=== PATIENT | female | born 1965 | race Caucasian/White ===

== ENCOUNTER 2020-10-31 10:27 | Outpatient (REF) | payer BC, SELFPAY ==
--- NOTE | ~2020-10-31 | MM_ITS ---
EXAMINATION: MM SCREENING DIGITAL BREAST TOMOSYNTHESIS, BILATERAL CLINICAL INFORMATION: Screening. Asymptomatic. The lifetime risk of breast cancer based on the Tyrer-Cuzick Model is 7.2%. COMPARISON: Mammography: October 26, 2019 and studies dating back to May 23, 2010 TECHNIQUE: Digital breast tomosynthesis is performed in both the craniocaudal and mediolateral oblique views along with computer-aided detection (CAD). Synthesized 2D images are generated from the tomosynthesis. FINDINGS: The breasts are heterogeneously dense, which may obscure small masses (ACR BI-RADS breast composition Category c). There are no significant masses, abnormal calcifications, or other abnormalities. MM/MM tomosynthesis screening BI IMPRESSION: There are no significant changes from prior study. ASSESSMENT: BI-RADS 1: Negative RECOMMENDATION: Routine annual mammography screening. This patient's information was entered into a reminder system with a target due date for their next mammogram.
== END 2020-10-31 10:28 | disposition home or self-care (01) ==
LOC: HO.MAMMO 10:27
PROVIDERS: PCP Physician Assistant; Visit Provider Physician Assistant
DX: Z12.31 Encounter for screening mammogram for malignant neoplasm of breast (principal)
CPT/HCPCS: 77063; 77067

== ENCOUNTER 2021-10-12 08:46 | Outpatient (REF) | payer BC, SELFPAY ==
[2021-10-12 09:27] LABS: MANUAL DIFF FLAG NO
[2021-10-12 10:29] LABS: Basophils Absolute Auto 0.1 X10*3/uL (0.0-0.2); Basophils Percent Auto 0.7 % (0-2); Eosinophils Absolute Auto 0.3 X10*3/uL (0.0-0.4); Eosinophils Percent Auto 4.1 % (0-4); Hematocrit 39.2 % (37.0-47.0); Hemoglobin 12.8 g/dl (12.0-16.0); Imm Gran Abs Auto 0.06 X10*3/uL (0.00-0.03); Imm Gran Pct Auto 0.8 % (0.0-0.4); Lymphocytes Percent Auto 28.2 % (20-40); Mean Corpuscular HGB Conc 32.7 g/dl (31.0-35.0); Mean Corpuscular Hemoglobin 29.9 pg (27.0-33.0); Mean Corpuscular Volume 91.6 fL (80.0-98.0); Mean Platelet Volume 11.6 fL (9.4-12.3); Monocytes Absolute Auto 0.6 X10*3/uL (0.1-1.2); Monocytes Percent Auto 8.3 % (2-11); Neutrophils Absolute Auto 4.1 x10*3/uL (2.0-8.3); Neutrophils Percent Auto 57.9 % (45-73); Platelet Count 207 X10*3/uL (160-400); Red Blood Count 4.28 X10*6/uL (4.20-5.50); Red Cell Distribution Width 12.9 % (11.0-16.0); White Blood Count 7.1 X10*3/uL (4.8-10.8)
[2021-10-12 10:48] LABS: Alanine Aminotransferase 36 U/L (0-31); Albumin Level 4.2 g/dL (3.5-5.0); Alkaline Phosphatase 123 U/L (39-117); Anion Gap 13 (12-20); Aspartate Amino Transferase 30 U/L (5-31); Bilirubin Total 0.3 mg/dL (0.0-1.0); Blood Urea Nitrogen 12 mg/dL (9-16); Calcium 9.2 mg/dL (8.4-10.2); Carbon Dioxide 27 mmol/L (22-29); Chloride 105 mmol/L (96-108); Estimated Glomerular Filt Rate > 60; Glucose Random 89 mg/dL (60-115); Potassium 4.5 mmol/L (3.3-5.1); Sodium 140 mmol/L (135-145)
== END 2021-10-12 08:47 | disposition home or self-care (01) ==
LOC: HO.LAB 08:46
PROVIDERS: PCP Physician Assistant; Visit Provider Dermatology
DX: L20.84 Intrinsic (allergic) eczema (principal); Z79.899 Other long term (current) drug therapy
CPT/HCPCS: 36415; 80053; 85025

== ENCOUNTER 2022-11-10 15:33 | Outpatient (REF) | payer BC, SELFPAY ==
--- NOTE | ~2022-11-10 | MM_ITS ---
EXAMINATION: MM SCREENING DIGITAL BREAST TOMOSYNTHESIS, BILATERAL CLINICAL INFORMATION: Screening. Asymptomatic. The lifetime risk of breast cancer based on the Tyrer-Cuzick Model is 7%. COMPARISON: Mammography: 10/31/2020, 10/26/2019, 09/04/2018 TECHNIQUE: Digital breast tomosynthesis is performed in both the craniocaudal and mediolateral oblique views along with computer-aided detection (CAD). Synthesized 2D images are generated from the tomosynthesis. Additional left MLO view is provided. FINDINGS: The breasts are heterogeneously dense, which may obscure small masses (ACR BI-RADS breast composition Category c). There are no significant masses, abnormal calcifications, or other abnormalities. Parenchymal pattern is similar to prior studies. There is no developing density or architectural abnormality. The axilla and skin contours are unremarkable. No significant changes. MM/MM tomosynthesis screening BI IMPRESSION: No mammographic evidence of malignancy. ASSESSMENT: BI-RADS 1: Negative RECOMMENDATION: Routine annual mammography screening. This patient's information was entered into a reminder system with a target due date for their next mammogram.
== END 2022-11-10 15:34 | disposition home or self-care (01) ==
LOC: HO.MAMMO 15:33
PROVIDERS: PCP Physician Assistant; Visit Provider Physician Assistant
DX: Z12.31 Encounter for screening mammogram for malignant neoplasm of breast (principal)
CPT/HCPCS: 77063; 77067

== ENCOUNTER 2023-11-16 15:36 | Outpatient (REF) | payer BC, SELFPAY | END 2023-11-16 15:37 | disposition home or self-care (01) | LOC: HO.MAMMO 15:36 | PROVIDERS: Visit Provider Physician Assistant | DX: Z12.31 Encounter for screening mammogram for malignant neoplasm of breast (principal) | CPT/HCPCS: 77063; 77067 ==

== ENCOUNTER → 2023-11-16 16:00 | Outpatient (BNV) | payer BC, SELFPAY | PROVIDERS: Visit Provider Radiology Diagnostic Radiology | DX: Z12.31 Encounter for screening mammogram for malignant neoplasm of breast (principal) | CPT/HCPCS: 77063; 77067 ==

== ENCOUNTER 2024-03-22 09:46 | Outpatient (AMB) | payer BC, SELFPAY ==
--- NOTE | 2024-03-22 09:49 | A.OFFPC_ITS ---
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 Accompanied by: Self / Same As Patient Allergies peanut [PEANUTS] Allergy (Unknown, Verified 03/22/24 09:53) ANAPHYLAXIS Peanut (Diagnostic) Allergy (Unknown, Uncoded 02/27/21 14:08) Anaphylaxis Medication List - Last Reconciled 03/22/24 by Keron Millan MD dupilumab (Dupixent) 300 mg subcut Q2W fluocinonide 0.05% 1 appl topical BID losartan 25 mg PO DAILY omeprazole 20 mg PO DAILY Tobacco use date assessed: 03/22/24 Dental Screening Dental Screen Date: 03/22/24 Did you have a dental visit in the last 12 months?: Yes Did you have a dental problem in the last 6 months where you did not have access to dental care?: No Was dental information given to patient?: Patient has dentist 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 ?? Prior PCP:?Solomon Bains Last office visit/CPE:? Acute issue(s):? Palp R knee ?? PMHx:? HTN, Eczema, Heartburn, palpitations SurgHx:?, R hand fracture, Teeth removal FHx:? Mom: CAD, [place] age 70s and Bypass, HTN. Dad: Emphysema. Sister: Hashimotos. Brother Lung CA. Sister EtOH & Drugs. SocHx:? Nonsmoker. EtOH: Occassional 1-2 in a week. No drugs PFSH Medical History (Updated 03/22/24 @ 11:09 by Keron Millan MD) Lower back pain Acid reflux disease Tonsil stone Eczema Surgical History History of hand surgery History of delivery Family History Mother Heart disease COPD (chronic obstructive pulmonary disease) Father No problems noted. 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 1. Little interest or pleasure in doing things: not at all 2. Feeling down, depressed, or hopeless: not at all 3. Trouble falling or staying asleep, or sleeping too much: not at all 4. Feeling tired or having little energy: not at all 5. Poor appetite or overeating: not at all 6. Feeling bad about yourself - or that you are a failure or have let yourself or your family down: not at all 7. Trouble concentrating on things, such as reading the newspaper or watching television: not at all 8. Moving or speaking so slowly that other people could have noticed. Or the opposite - being so fidgety or restless that you have been moving around a lot more than usual: not at all 9. Thoughts that you would be better off or of hurting yourself in some way: not at all Total score: 0 Depression Screening Interpretation: Negative Depression Screening Done: Yes 20744 - PHQ-9 Billing: Yes Source: Developed by Drs. Leonidas Piper, Radha Brunson, Armaan Kaur and colleagues, with an educational melina from [employer]. Thrive Questionnaire Date Thrive assessed: 03/22/24 I am a: Patient What is your living situation today?: I have a steady place to live Within the past 12 months, did the food you bought not last and you didn't have the money to get more?: Never true Within the past 12 months, did you worry whether your food would run out before you got money to buy more?: Never true Do you have trouble paying for medicines?: No Do you have trouble getting transportation to medical appointments?: No Do you have trouble paying your heating and electricity bill?: No Do you have trouble taking care of your child, family member or friend?: No Do you have trouble with day-to-day activities such as bathing, preparing meals, shopping, managing finances, etc.?: No Are you currently unemployed and looking for a job?: No Are you interested in more education?: No Currently or been in a relationship where the following occur: No concerns reported THRIVE Score: 0 AUDIT C Alcohol Use Questionnaire (AUDIT-C) 1. How often do you have a drink containing alcohol?: Monthly or less 2. How many drinks containing alcohol do you have on a typical day when you are drinking?: 1 or 2 Total Score: 1 MICHAEL-7 AMB Questionnaire MICHAEL-7 Date MICAHEL - 7 assessed: 03/22/24 Feeling nervous, anxious, or on edge: 0 = Not at all Not being able to stop or control worryin = Not at all Worrying too much about different things: 0 = Not at all Trouble relaxin = Not at all Being so restless that it is hard to sit still: 0 = Not at all Becoming easily annoyed or irritable: 0 = Not at all Feeling afraid as if something awful might happen: 0 = Not at all Total MICHAEL-7 score (0-4 normal; 5-9 mild; 10-14 moderate; 15-21 severe): 0 Source: Developed by Drs. Leonidas Piper, Radha Brunson, Armaan Kaur and colleagues, with an educational melina from [employer]. MICHAEL-7 Assessment Billing MICHAEL-7 Assessment Tool: MICHAEL-7 Assessment 62440 Review of Systems Const Denies chills, Denies fatigue, Denies fever(s), Denies headache(s) and Denies weakness ENT Denies dizziness and Denies headache(s) Card Denies chest pain, Denies lightheadedness, Denies dyspnea and Denies other (Palpitations) Resp Denies cough, Denies dyspnea, Denies wheezing and Denies other ( shortness of breath) Musc Denies numbness and Denies tingling Neuro Denies dizziness, Denies headache(s), Denies numbness, Denies tingling, Denies paresthesias and Denies weakness Psych Denies anxiety and Denies depression Endo Denies fatigue Aller/Immun Denies wheezing Physical exam (Primary Care) Vital Signs: Last Vital Signs Pulse 83 07/30/24 09:53 BP 130/76 03/22/24 09:53 Pulse Ox 98 03/22/24 09:53 Oxygen Delivery Method Room Air 03/22/24 09:53 BMI result Body Mass Index 33.9 Tobacco/Smoking Status: Tobacco use Status Tobacco use date assessed 03/22/24 03/22/24 09:56 Patient Tobacco Use Status Never used Tobacco 03/22/24 10:02 e-Cigarette/Vaping Use Never Used 03/22/24 10:02 PHQ-9: PHQ-9 Score PHQ-9: Total score 0 03/22/24 10:15 Depression Screening Interpretation: Negative Thrive Assessment: Date of Thrive Assessment Date Thrive assessed 03/22/24 03/22/24 09:56 Currently or been in a relationship where the following occur: No concerns reported Const General: no acute distress and well developed Nutritional Appearance: well nourished Orientation/consciousness: patient oriented x3 HENMT Head: Yes normocephalic and Yes atraumatic Eyes General: appearance normal, both eyes and all related structures Pupils: Equal, round and reactive pupils present EOM: EOMs intact bilaterally Resp Effort & Inspection: normal respiratory effort Auscultation: clear to auscultation bilaterally Cardio Rate: regular rate Rhythm: regular rhythm Heart sounds: S1 normal heart sound present, S2 normal heart sound present, no gallops, no murmurs and no rubs Neuro General: patient oriented x3 and gait normal Cranial nerves: Yes Equal, round and reactive pupils present Psych Affect: normal affect Assessment and Plan Assessment & Plan (1) Palpitations: Code(s): R00.2 - Palpitations Plan: 58-year-old?female?with?Longstanding?palpitations.??Patient?also? has?hypertension She?notes?palpitations?have?worsened EKG: ?Normal?sinus?rhythm,?normal?axis,?normal?intervals,?no?hypertrophy,?no?ST-T-wav e?changes Worsening?palpitations?in?58-year-old?female?and? patient?notes?some?vertigo?and?also?presyncope?with?these?episodes. Referred?to?cardiology (2) HTN (hypertension): Code(s): I10 - Essential (primary) hypertension Plan: Blood?pressure?is?controlled.??Goal?is?less?than?140/90 As?above,?EKG?is?normal Continue?losartan Encouraged?diet,?exercise,?weight?loss?and?watch?salt/sodium (3) Right knee pain: Code(s): M25.561 - Pain in right knee Plan: Right?knee?instability?and?some?discomfort. Injury?to?right?knee?many?years?ago?but?more?recently?she?has?had?instability?wi thout?any?discrete?moment?of?injury. Some?mild?inflammation Some?apprehension?with?Karoline?testing Drawer?signs?are?negative Unclear?cause.??May?have?an?injury?to?a?ligament?or?a?meniscal?injury?though?sym ptoms?do?not?include?locking/catching. Will?check?x-ray We?discussed?she?may?need?some?physical?therapy?but?she?would?like?to?get?x- rays?1st. We?discussed?she?will?likely?need?a?referral?to?Ortho Can?use?ibuprofen?or?Tylenol?for?discomfort Ice/heat Can?use?knee?brace?during?exercise?or?increased?activity (4) Acid reflux disease: Code(s): K21.9 - Gastro-esophageal reflux disease without esophagitis Plan: Longstanding?acid?reflux?and?has?been?on?omeprazole?for?years Referred?to?GI (5) Vertigo: Code(s): R42 - Dizziness and giddiness Plan: Longstanding?vertigo Hydrate?well She?will?let?me?know?if?this?worsens?or?changes (6) Laboratory exam ordered as part of routine general medical examination: Code(s): Z00.00 - Encounter for general adult medical examination without abnormal findings Plan: Check?labs Orders: Orders Comprehensive Jay. Panel Fast Today Z00.00 - Encounter for general adult medical examination without abnormal findings Lipid Panel Today Z00.00 - Encounter for general adult medical examination without abnormal findings Microalbumin, Random (w Creat) Today I10 - Essential (primary) hypertension Vitamin B12 and Folate Today E53.8 - Deficiency of other specified B group vitamins Complete Blood Count Auto Diff Today Z00.00 - Encounter for general adult medical examination without abnormal findings TSH reflex Free T4 Today Z00.00 - Encounter for general adult medical examination without abnormal findings UA and rflx microscopic Today Z00.00 - Encounter for general adult medical examination without abnormal findings Vitamin D 25-OH Total Today E55.9 - Vitamin D deficiency, unspecified AMB EKG-In Office Today I10 - Essential (primary) hypertension, R00.2 - Palpitations XR knee LT 3V Today M25.561 - Pain in right knee Referrals Gastroenterology Referral K21.9 - Gastro-esophageal reflux disease without esophagitis Cardiology Referral R00.2 - Palpitations, R42 - Dizziness and giddiness, R55 - Syncope and collapse Medications: Refilled omeprazole 20 mg PO DAILY 90 caps 0RF Coding Level of Care Code New Pt Level 4 (13217) Diagnoses Palpitations R00.2 HTN (hypertension) I10 Right knee pain M25.561 Acid reflux disease K21.9 Vertigo R42 Laboratory exam ordered as part of routine general medical examination Z00.00 Additional Codes MICHAEL-7 Assessment Billing - MICHAEL-7 Assessment Tool: MICHAEL-7 Assessment 89793 ([id number])
[2024-03-22 09:53] VITALS: BP 130/76; PULSE 83; O2SAT 98; BMI 33.9
== END 2024-03-22 11:14 | disposition home or self-care (01) ==
PROVIDERS: PCP Physician Assistant; Visit Provider Family Medicine
DX: R00.2 Palpitations (principal); I10 Essential (primary) hypertension; M25.561 Pain in right knee; K21.9 Gastro-esophageal reflux disease without esophagitis; R42 Dizziness and giddiness
CPT/HCPCS: 99204

== ENCOUNTER 2024-04-14 07:00 | Outpatient (REF) | payer BC, SELFPAY ==
[2024-04-14 07:21] LABS: MANUAL DIFF FLAG NO
[2024-04-14 07:43] LABS: Basophils Absolute Auto 0.1 X10*3/uL (0.0-0.2); Basophils Percent Auto 0.8 % (0-2); Eosinophils Absolute Auto 0.3 X10*3/uL (0.0-0.4); Eosinophils Percent Auto 4.7 % (0-4); Hematocrit 40.9 % (37.0-47.0); Imm Gran Abs Auto 0.03 X10*3/uL (0.00-0.03); Imm Gran Pct Auto 0.5 % (0.0-0.4); Lymphocytes Absolute Auto 1.7 X10*3/uL (1.2-4.9); Lymphocytes Percent Auto 26.8 % (20-40); Mean Corpuscular HGB Conc 34.2 g/dl (31.0-35.0); Mean Corpuscular Volume 90.5 fL (80.0-98.0); Mean Platelet Volume 11.8 fL (9.4-12.3); Monocytes Absolute Auto 0.5 X10*3/uL (0.1-1.2); Monocytes Percent Auto 7.4 % (2-11); Neutrophils Absolute Auto 3.8 x10*3/uL (2.0-8.3); Neutrophils Percent Auto 59.8 % (45-73); Platelet Count 199 X10*3/uL (160-400); Red Blood Count 4.52 X10*6/uL (4.20-5.50); Red Cell Distribution Width 12.4 % (11.0-16.0); White Blood Count 6.4 X10*3/uL (4.8-10.8)
[2024-04-14 08:08] LABS: Alanine Aminotransferase 28 U/L (0-31); Albumin Level 4.4 g/dL (3.5-5.0); Alkaline Phosphatase 106 U/L (39-117); Anion Gap 13 (12-20); Aspartate Amino Transferase 18 U/L (5-31); Bilirubin Total 0.4 mg/dL (0.0-1.0); Blood Urea Nitrogen 13 mg/dL (9-16); Calcium 10.2 mg/dL (8.4-10.2); Carbon Dioxide 25 mmol/L (22-29); Chloride 107 mmol/L (96-108); Cholesterol 218 mg/dL (<200); Estimated Glomerular Filt Rate > 60; Glucose Fasting 105 mg/dL (60-99); HDL Cholesterol 47 mg/dL (>40); LDL Cholesterol Calculated 144 mg/dL (<100); Potassium 4.1 mmol/L (3.3-5.1); Sodium 141 mmol/L (135-145); Total Protein 7.5 g/dL (6.5-8.0); Triglycerides 139 mg/dL (<150)
[2024-04-14 08:20] LABS: Appearance Urine Cloudy; Color Urine Yellow; Glucose Urine UA Negative (Negative); Leukocyte Esterase Urine Trace (Negative); Nitrite Urine Negative (Negative); PH 5.5 (5.0-9.0); Specific Gravity - Urine 1.025 (1.005-1.025); UMIC TRIGGER UA YES; Urine Blood Negative (Negative); Urine Ketones Trace mg/dL (Negative); Urine Protein Negative (Neg-Trace)
[2024-04-14 08:23] LABS: TSH reflex Free T4 2.63 uIU/mL (0.32-4.0); Vitamin D 25-OH Total 38.1 ng/mL (>30)
[2024-04-14 08:36] LABS: Folate 10.8 ng/mL (> or = 4.0); Vitamin B12 294 pg/mL (200-900)
[2024-04-14 08:40] LABS: Bacteria Urine 2+ (None Seen); RBC Urine 0-2 /HPF (0-2)
[2024-04-14 09:17] LABS: Microalbum/Creatinine Ratio Ur 4.8 ug/mg cr (<30)
== END 2024-04-14 07:01 | disposition home or self-care (01) ==
LOC: HO.LAB 07:00
PROVIDERS: PCP Family Medicine; Visit Provider Family Medicine
DX: Z00.00 Encounter for general adult medical examination without abnormal findings (principal); I10 Essential (primary) hypertension; E55.9 Vitamin D deficiency, unspecified; E53.8 Deficiency of other specified B group vitamins
CPT/HCPCS: 36415; 80053; 80061; 81001; 82043; 82306; 82570; 82607; 82746; 84443; 85025

== ENCOUNTER 2024-05-23 14:25 | Outpatient (REF) | payer BC, SELFPAY ==
--- NOTE | ~2024-05-23 | XR_ITS ---
EXAMINATION: XR KNEE, RIGHT CLINICAL INFORMATION: Right knee pain COMPARISON: Right knee 03/02/2020 TECHNIQUE: Four views of the right knee. FINDINGS: Some mild degenerative changes are present in all compartments least in the lateral compartment. There is narrowing medially with some small osteophytes. Small posterior osteophyte noted at the superior patella. No joint effusion is seen on the current study where as previously a small joint effusion was present. No fractures. XR/XR knee RT 3V IMPRESSION: Mild tricompartmental degenerative changes. Electronically signed by: Shan Beverly MD 05/23/2024 03:15 PM EDT
== END 2024-05-23 14:26 | disposition home or self-care (01) ==
LOC: HO.XRAY 14:25
PROVIDERS: PCP Family Medicine; Visit Provider Family Medicine
DX: M25.561 Pain in right knee (principal)
CPT/HCPCS: 73562

== ENCOUNTER 2024-05-27 14:50 | Outpatient (AMB) | payer BC, SELFPAY ==
--- NOTE | 2024-05-27 14:56 | A.OFFPC_ITS ---
Vital Signs 05/27/24 15:11 Height 5 ft 3 in Weight 193 lb 6 oz BMI 34.3 BP 114/78 Blood Pressure Location Lt brachial Position Sitting Respiration 16 Pulse 90 Pulse Source Pulse Oximeter Temp 98.0 F Temp Source Oral Pulse Oximetry (%) 95 Oxygen Delivery Method Room Air Intake Visit Reasons: CPE and f/u on labs Intake Note: patient here for follow up on labs. Is last menstrual period known: No Post menopausal: No Patient : No Allergies peanut [PEANUTS] Allergy (Unknown, Verified 05/27/24 15:13) ANAPHYLAXIS Peanut (Diagnostic) Allergy (Unknown, Uncoded 05/27/24 15:13) Anaphylaxis Medication List - Last Reconciled 05/27/24 by Glenna Aponte CNP dupilumab (Dupixent) 300 mg subcut Q2W fluocinonide 0.05% 1 appl topical BID losartan 25 mg PO DAILY omeprazole 20 mg PO DAILY 90 days Tobacco use date assessed: 05/27/24 Dental Screening Dental Screen Date: 05/27/24 Did you have a dental visit in the last 12 months?: Yes Did you have a dental problem in the last 6 months where you did not have access to dental care?: No Was dental information given to patient?: Patient has dentist HPI HPI Comments History of Present Illness Details 59-year-old female presents for review o f recent lab results She admits to taking her medications as prescribed without adverse reactions She offers no complaints and denies acute symptoms at this time She was schedule for an extended physical exam and labs review. However, she declines physical at this time and notes that she prefers getting an extended physical exam from her PCP [facility] Medical History (Updated 05/27/24 @ 15:07 by Glenna Aponte CNP) Lower back pain Acid reflux disease Tonsil stone Eczema Surgical History History of hand surgery History of delivery Family History Mother Heart disease COPD (chronic obstructive pulmonary disease) Father No problems noted. 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 Leonidas Piper, Radha Brunson, Armaan Kaur and colleagues, with an educational melina from [employer]. Review of Systems Const Details: Const Denies chills, Denies fatigue, Denies fever(s), Denies headache(s) and Denies weakness ENT Denies dizziness and Denies headache(s) Card Denies chest pain, Denies lightheadedness, Denies dyspnea and Denies other (Palpitations) Resp Denies cough, Denies dyspnea, Denies wheezing and Denies other ( shortness of breath) GI Denies abdominal pain, Denies melena, Denies hematochezia, Denies change in bowel habits, Denies dyspepsia and Denies nausea Denies hematuria and Denies dysuria Musc Denies abnormal gait, Denies myalgias, Denies arthralgias, Denies numbness and Denies tingling Skin/Breast Denies rash, Denies unusual bruising and Denies wounds Neuro Denies abnormal gait, Denies dizziness, Denies headache(s), Denies memory loss, Denies numbness, Denies Sensory deficit (Neuro), Denies tingling and Denies weakness Endo Denies cold intolerance, Denies fatigue, Denies heat intolerance, Denies polydipsia and Denies polyuria Aller/Immun Denies wheezing Physical exam (Primary Care) Tobacco/Smoking Status: Tobacco use Status Tobacco use date assessed 03/22/24 05/27/24 14:58 Patient Tobacco Use Status Never used Tobacco 05/27/24 14:58 e-Cigarette/Vaping Use Never Used 05/27/24 14:58 Thrive Assessment: Date of Thrive Assessment Date Thrive assessed 03/22/24 05/27/24 14:58 Const Other: General: no acute distress and well developed Nutritional Appearance: well nourished Orientation/consciousness: patient oriented x3 HENMT Head: Yes normocephalic and Yes atraumatic Eyes General: appearance normal, both eyes and all related structures Pupils: Equal, round and reactive pupils present EOM: EOMs intact bilaterally Resp Effort & Inspection: normal respiratory effort Auscultation: clear to auscultation bilaterally Cardio Rate: regular rate Rhythm: regular rhythm Heart sounds: S1 normal heart sound present, S2 normal heart sound present, no gallops, no murmurs and no rubs GI Palpation (GI): No Abdominal aortic bruit present, Soft to palpation, nontender, No hepatosplenomegaly present and No Rebound tenderness present Auscultation: normal bowel sounds General: Yes no CVA tenderness Back/Spine/Pelvis Back: no CVA tenderness Extrem General: Yes normal to inspection, No edema and No calf tenderness Skin General: warm and dry. Normal skin color. Normal skin turgor Neuro General: patient oriented x3, gait normal and no focal neuro deficit Cranial nerves: Yes Equal, round and reactive pupils present Cognition (Neuro): normal cognition Gait exam (Neuro): Normal gait present Sensory Exam: No Sensory deficit (Neuro) Psych Appearance: grossly normal Affect: normal affect Attitude: cooperative Thought process: Normal thought process present Coding Level of Care Code Est Pt Level 3 (14605) Diagnoses Hypercholesterolemia E78.00 Elevated fasting glucose R73.01 HTN (hypertension) I10 Assessment & Plan Assessment & Plan (1) Hypercholesterolemia: Code(s): E78.00 - Pure hypercholesterolemia, unspecified Category: Medical Plan: Recent total cholesterol and LDL levels are elevated, 218 and 144 respectively Advised to limit foods high in saturated fat and avoid foods high in trans fat Routine exercise encouraged Advised to fast for 10-12 hours, may drink water only, and get blood work done before her next visit Follow-up with PCP in 2 months for an extended physical exam and labs review Return sooner with symptoms or concerns Verbalized understanding and agreed with the treatment plan Recent x-ray of the right knee also reviewed with the patient (2) Elevated fasting glucose: Code(s): R73.01 - Impaired fasting glucose Category: Medical Plan: Recent fasting glucose is slightly elevated, 105 Healthy diet and routine exercise encouraged Will recheck fasting glucose Follow-up in 2 months Verbalized understanding and agreed with the plan (3) HTN (hypertension): Code(s): I10 - Essential (primary) hypertension Category: Medical Plan: Blood pressure today is 114/78, within goal of less than 140/90 Continue current treatment regimen Low-sodium diet encouraged Follow-up with PCP in 2 months Verbalized understanding and agreed with the treatment plan Orders: Orders Glucose Fasting 2 Months R73.01 - Impaired fasting glucose Lipid Panel 2 Months E78.00 - Pure hypercholesterolemia, unspecified
[2024-05-27 15:11] VITALS: BP 114/78; PULSE 90; RESP 16; TEMP 36.7; O2SAT 95; BMI 34.3
== END 2024-05-27 15:24 | disposition home or self-care (01) ==
PROVIDERS: PCP Family Medicine; Visit Provider Nurse Practitioner Family
DX: E78.00 Pure hypercholesterolemia, unspecified (principal); R73.01 Impaired fasting glucose; I10 Essential (primary) hypertension

== ENCOUNTER → 2024-05-27 14:50 | Outpatient (BNVA) | payer BC, SELFPAY | PROVIDERS: PCP Family Medicine; Visit Provider Nurse Practitioner Family ==

== ENCOUNTER 2024-05-30 13:40 | Outpatient (AMB) | payer BC, SELFPAY ==
--- NOTE | 2024-05-30 13:46 | MHC.OFFVIS ---
Vital Signs 05/30/24 13:47 Height 5 ft 3 in Weight 189 lb 9.561 oz BMI 33.6 BP 120/74 Blood Pressure Location Lt brachial Position Sitting Pulse 84 Intake Visit Reasons: Gastroesophageal reflux disease (GERD) Intake Note: Kathy presents in the office as new patient for GERD. CC: She has been on omeprazole for a while now and she would like to discuss that. No issues otherwise regarding GI. Allergies peanut [PEANUTS] Allergy (Unknown, Verified 05/30/24 13:49) ANAPHYLAXIS Peanut (Diagnostic) Allergy (Unknown, Uncoded 05/30/24 13:49) Anaphylaxis HPI Comments Details: 59 y.o F with PMH of eczema on dupixent, HTN who is here for discussion re PPI. Reports was started on omeprazole almost 10 years ago for heartburn. Since then has been on omep 20 mg once daily. Whenever has attempted to stop it, gets rebound heartburn. EGD 2018 was done on ppi and at that time no endoscopic esophagitis or barretts. No bx taken. [facility] [place] Medical History Lower back pain Acid reflux disease Tonsil stone Eczema Surgical History Hx of colonoscopy History of esophagogastroduodenoscopy (EGD) History of hand surgery History of delivery Family History Mother Heart disease COPD (chronic obstructive pulmonary disease) Father No problems noted. 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 Cognitive needs: No Hearing needs: No Vision needs: Yes (Reading Glasses) Review of Systems Const All systems reviewed & are unremarkable except as noted in HPI and below Physical Exam Vital Signs: Last Vital Signs Pulse 84 05/30/24 13:47 BP 120/74 05/30/24 13:47 BMI result Body Mass Index 33.6 No apparent distress Nonicteric Abdomen soft, nondistended Alert and oriented x3, normal gait Assessment & Plan Assessment & Plan (1) Acid reflux disease: Code(s): K21.9 - Gastro-esophageal reflux disease without esophagitis Category: Medical Plan Ddx include GERD melinda given underying HH, EoE melinda given eczema, NERD, rebound pyrosis. Plan: - Taper off omeprazole - Barium esophagogram - EGD with bx - Follow up after EGD Orders: Orders [place] barium swallow Today K21.9 - Gastro-esophageal reflux disease without esophagitis Medications: New omeprazole 10 mg PO DAILY 90 days 90 caps 0RF Coding Level of Care Code New Pt Level 4 (86814) Diagnoses Acid reflux disease K21.9
[2024-05-30 13:47] VITALS: BP 120/74; PULSE 84; BMI 33.6
== END 2024-05-30 14:50 | disposition home or self-care (01) ==
PROVIDERS: Visit Provider Internal Medicine
DX: K21.9 Gastro-esophageal reflux disease without esophagitis (principal)
CPT/HCPCS: 99204

== ENCOUNTER → 2024-05-30 13:40 | Outpatient (BNVA) | payer BC, SELFPAY | PROVIDERS: Visit Provider Internal Medicine ==

== ENCOUNTER 2024-07-14 12:55 | Outpatient (AMB) | payer BC, SELFPAY ==
--- NOTE | 2024-07-14 13:12 | A.OFFVIS_ITS ---
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 According to her, mother had bypass surgery. Brother also had some coronary issues but he from lung cancer. Patient herself does not have any clear- cut cardiac complaints like angina. She does get short of breath with activity. She believes she has gained some weight recently. She is on a small dose of losartan for high blood pressure. Otherwise, no clear-cut angina. She would like to get her cardiac status checked out because of family history. [facility] Medical History Lower back pain Acid reflux disease Tonsil stone Eczema Surgical History Hx of colonoscopy History of esophagogastroduodenoscopy (EGD) History of hand surgery History of delivery Family History (Updated 07/14/24 @ 13:37 by Gabriel Galan MD) Mother Heart disease COPD (chronic obstructive pulmonary disease) Hx of CABG Father No problems noted. 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 Cognitive needs: No Hearing needs: No Vision needs: Yes (Reading Glasses) Review of Systems Const Denies weakness ENT Reports dizziness Card Denies chest pain, Denies chest pain with activity, Denies syncope, Denies rapid heart rate, Denies pedal edema, Denies edema, Denies leg edema, Denies lightheadedness, Reports palpitations, Denies dyspnea, Denies dyspnea on exertion and Denies orthopnea Resp Denies cough, Denies dyspnea and Denies dyspnea on exertion GI Denies hematochezia and Denies change in stool character Musc Denies abnormal gait, Denies muscle cramps, Denies muscle weakness, Denies numbness, Denies radiating pain into limb and Denies tingling Neuro Denies abnormal gait, Reports dizziness, Denies syncope, Denies numbness, Denies tingling and Denies weakness Endo Reports palpitations Physical Exam Vital Signs: Last Vital Signs Pulse 78 07/14/24 13:13 BP 122/80 07/14/24 13:13 BMI result Body Mass Index 33.6 Const General: comfortable and no acute distress Orientation/consciousness: patient oriented x3 HEENT Other: Unremarkable Head: Yes normal to inspection Neck Neck: Yes normal visual inspection Chest Chest palpation & inspection: normal inspection of the chest Resp Auscultation: clear to auscultation bilaterally Cardio Palpation: normal PMI Heart sounds: S1 normal heart sound present, S2 normal heart sound present, no gallops, no murmurs and no rubs GI Palpation (GI): Soft to palpation Back/Spine/Pelvis Other: unremarkable Skin General skin exam: no rashes or lesions noted Neuro General: patient oriented x3 Extrem General: Yes normal to inspection Psych Mental Status: mental status grossly normal Office Procedures EKG Details: EKG with underlying sinus rhythm at 78/Min; no significant ST-T changes and otherwise unremarkable[place] [id number]-[id number], Complete Assessment & Plan Assessment & Plan (1) SOB (shortness of breath): Code(s): R06.02 - Shortness of breath Category: Medical Plan: Check echocardiogram for LV dysfunction. If this is unremarkable, then could be related to weight and deconditioning. 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 (2) Family history of coronary artery disease: Code(s): Z82.49 - Family history of ischemic heart disease and other diseases of the circulatory system Category: Medical Plan: Obtain calcium scoring CT scan. (3) HTN (hypertension): Code(s): I10 - Essential (primary) hypertension Category: Medical Plan: On Losartan. She wants to come off the medication. May do so, but needs to monitor the home blood pressures. If it rebounds, will need to likely go back. Orders: Orders CA echo transthoracic complete Today R06.02 - Shortness of breath CT Coronary Calcium Score Today I25.10 - Atherosclerotic heart disease of [place] coronary artery without angina pectoris, Z82.49 - Family history of ischemic heart disease and other diseases of the circulatory system Coding Level of Care Code New Pt Level 4 (75780) Diagnoses SOB (shortness of breath) R06.02 Family history of coronary artery disease Z82.49 HTN (hypertension) I10 CPT Codes EKG - CPT: 01914-Zulsvncrmplltmqie, Complete ([id number])
[2024-07-14 13:13] VITALS: BP 122/80; PULSE 78; BMI 33.6
== END 2024-07-14 13:48 | disposition home or self-care (01) ==
PROVIDERS: Visit Provider Internal Medicine
DX: R06.02 Shortness of breath (principal); Z82.49 Family history of ischemic heart disease and other diseases of the circulatory system; I10 Essential (primary) hypertension
CPT/HCPCS: 93010; 99204

== ENCOUNTER → 2024-07-14 12:55 | Outpatient (BNVA) | payer BC, SELFPAY | PROVIDERS: Visit Provider Internal Medicine | DX: R06.02 Shortness of breath (principal); I10 Essential (primary) hypertension; Z79.899 Other long term (current) drug therapy; Z82.49 Family history of ischemic heart disease and other diseases of the circulatory system | CPT/HCPCS: 93005 ==

== ENCOUNTER → 2024-08-03 12:40 | Outpatient (REF) | payer BC, SELFPAY ==
--- NOTE | 2024-08-03 12:43 | CA_ITS ---
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 Left Ventricle Normal left ventricular size, thickness, and systolic function. The visually estimated ejection fraction is between 60-65%. Spectral Doppler is indicative of a normal filling pattern. Right Ventricle Normal right ventricular cavity size and systolic function. Atria Both atria are normal in size. Interatrial shunt cannot be excluded. Aortic Valve The aortic valve structure and function is likely normal. There is no aortic valve stenosis. There is no aortic valve regurgitation. Mitral Valve Normal mitral valve structure and function. There is no mitral valve regurgitation. There is no mitral valve stenosis. Pulmonic Valve The pulmonic valve is likely normal. Tricuspid Valve Normal tricuspid valve structure. There is trace tricuspid valve regurgitation. The right ventricular systolic pressure is normal. The right ventricular systolic pressure is 26 mmHg. Normal right atrial pressure. There is no evidence of pulmonary hypertension. Great Vessels All visible segments of the aorta are normal in size. The pulmonary artery was not well visualized. Venous The inferior vena cava is normal in size and collapses greater than 50% with inspiration. Pericardium/Pleural There is no evidence of pericardial effusion. Prior Study Comparison No prior study available for comparison. Measurements 2D Linear Measurements IVSd: 1.13 0.6-0.9/0.6-1.0 cm LVIDd: 4.43 3.9-5.3/4.2-5.9 cm LVIDd Index: 2.34 2.4-3.2/2.2-3.1 cm/m2 LVIDs: 3.30 2.0-3.6 cm LVPWd: 1.00 0.7-1.1 cm Ao Root: 2.80 2.1-3.5 cm LA Diam: 3.80 2.7-3.8/3.0-4.0 cm LAIDs Index: 2.01 1.5-2.3 cm/m2 LV Mass: 202.77 67-162/88-224 g LV Mass Index: 107.29 43-95/49-115 g/m2 LVOT Diam: 2.00 3.0+(-)1.3 cm 2D Systolic Function EF 4C: 58.50 >55% EF 2C: 68.70 >55% EF BiP: 63.60 >55% Mitral Valve MV Pk E: 0.73 MV PK A: 0.62 MV Decel Time: 197.00 E/A: 1.20 E'Lateral: 9.46 E'Medial: 8.59 E/E' Med: 8.50 E/E' Lat: 7.70 PHT: 58.00 MVA PHT: 3.79 Decel [place]: 3.70 Aortic Valve AoV Pk Marshall: 1.31 AoV Mn Marshall: 0.92 AoV VTI: 0.27 AoV Pk Grad: 7.00 Aov Mn Grad: 4.00 CARLEY Cont.VTI: 2.64 LVOT LVOT Pk Marshall: 1.01 LVOT Mn Marshall: 0.76 LVOT VTI: 0.23 LVOT Pk Grad: 4.00 LVOT Mn Grad: 3.00 LVOT Diam: 2.00 LVOT Area: 3.14 Diastolic Function MV Pk E: 0.73 MV Pk A: 0.62 E/A: 1.20 E'Medial: 8.59 E/E' Med: 8.50 E' Laterial: 9.46 E/E' Lat: 7.70 Right Ventricle TAPSE (mm): 19.99 TVS' Marshall: 10.00 Tricuspid Valve TR Pk Marshall: 2.39 TR Pk Grad: 23.00 RA Press: 3.00 RVSP: 26.00 Great Vessels Aorta Ao Root-2D: 2.80 2.0-3.7 cm Ao Asc: 3.40 2.1-3.4 cm Ao Arch: 2.40 Updated in Other Vendor System with Status of Final Carlos Rolle MD electronically signed on 08/04/2024 8:30:05 AM with status of Final
== END ==
LOC: HO.CARD 12:40
PROVIDERS: PCP Family Medicine; Visit Provider Internal Medicine
DX: R06.02 Shortness of breath (principal)
CPT/HCPCS: 93306; Q9957

== ENCOUNTER → 2024-08-03 12:43 | Outpatient (BNV) | payer BC, SELFPAY | PROVIDERS: PCP Family Medicine; Visit Provider Internal Medicine Cardiovascular Disease | DX: R06.02 Shortness of breath (principal) | CPT/HCPCS: 93306 ==

== ENCOUNTER 2024-08-12 08:32 | Outpatient (REF) | payer BC, SELFPAY ==
--- NOTE | ~2024-08-12 | FL_ITS ---
EXAMINATION: XR FLUOROSCOPY UPPER GI WITH AIR CLINICAL INFORMATION: Reflux COMPARISON: None TECHNIQUE: Fluoroscopic air contrast upper GI examination was performed utilizing standard techniques with thin and thick barium and effervescent granules. Numerous spot images were obtained. FINDINGS: Dual and single contrast images of the esophagus demonstrate normal caliber, contour, and mucosal pattern. No evidence of stricture, mass, or ulcerations identified. Esophageal peristalsis was normal. A small type I hiatal hernia is present. No significant gastroesophageal reflux was seen during the course of the examination and on reflux views. Dual contrast and single contrast images of the stomach demonstrated a normal contour. There are multiple well-circumscribed filling defects in the body and fundus of the stomach that may represent small hyperplastic polyps. No masses or ulcerations are seen. Contrast freely passed into the gastric antrum and duodenal bulb without delay. Single and air-contrast images of the duodenal bulb demonstrate no abnormality. The duodenal sweep has a normal appearance, course, and mucosal fold appearance. The imaged proximal jejunum has a normal fold pattern and caliber. FLUOROSCOPY TIME: 2 minutes 41 seconds Number of Spot Images: 12 Number of Cine: 10 DOSE AREA PRODUCT: 1845 uGy-m2 (microgray-meter squared) FL/FL barium swallow with air IMPRESSION: 1. Small type I hiatal hernia. 2. Multiple well-circumscribed filling defects in the body and fundus of the stomach that may present small hyperplastic polyps. Recommend correlation with EGD. This procedure was performed by kM Barnes PA-C, and supervised by Dr. Banuelos Electronically signed by: Chencho Banuelos MD 08/12/2024 04:01 PM [facility]
--- OUTSIDE RECORDS SUMMARY | 2024-08-12 08:34 | XMS_ITS | Continuity of Care Document ---
Author Organization [facility] [place] Address [address] [place] [address]- Care Team Providers Care Product Applications Scientist Name Role Phone Not on Staff, PCP Primary Care Physician Unavail able Encounter 07/29/24 - 08/05/24 [facility] [place] [address], [address] [place] [address]- Attending Physician: Gabriel Galan MD Admitting Physician: Gabriel Galan MD Referring Physician: Gabriel Galan MD Encounter Type: OutPatient One Time Results Radiology Reports * Exam Date Time Procedure Performing Provider Status 07/29/24 4:[address] Heart W/O Dye Emir Eval Sunil , Er ic; Auth (Verified) Notes: (CT Heart W/O Dye Emir Eval) Reason For Exam: I25.10 ATHERSCLEROTIC HEART DISEASE OF [place] CORONARY ARTERY WITHOUT ANGINA PECTORIS Z82.49 FAMILY HX OF ISCHEMIC HEART DISEASE RESULT: CT Heart W/O Dye Emir Eval CT Heart W/O Dye Emir Eval INDICATION: Reason: I25.10 ATHERSCLEROTIC HEART DISEASE OF [place] CORONARY ARTERY WITHOUT ANGINA PECTORIS Z82.49 FAMILY HX OF ISCHEMIC HEART DISEASE Female of age 59 years, race White COMPARISON: None TECHNIQUE: Coronary artery Calcium Scoring. After a localizing forest products teacher image was obtained, an ECG-gated noncontrast exam was obtained of the heart in late diastole. The region of interest was limited to the heart in order to optimize image quality. Weight-based protocol using automatic tube modulation was used to optimize exposure parameters. A [employer] 64 scanner was used, with Agatston scoring performed using [employer]) web-based software. This procedure is not being performed on thispatient for preoperative evaluation for low-risk surgery within 30 days. CTDIvol Body: 11.46 mGy, DLP Body: 183 mGy*cm. FINDINGS: Coronary Calcium Scoring Summary: Left Main: Score 0. LAD: Score 38. Circumflex: Score 0. Right: Score 0. TOTAL: Score 38. Non-coronary Findings: Fatty liver. Tiny hiatal hernia. IMPRESSION: The Agatston coronary calcium score is 38. The Multi-Ethnic Study of Atherosclerosis (MENA) trial on-line calculator can be used to determine the probability of having coronary calcification and the calcium score percentile for subjects basedon age, gender and race/ethnicity who are free of clinical cardiovascular disease and treated diabetes: http://www.mena-nhlbi.org/Calcium/input.aspx The observed calcium score is at the 81st percentile. I have personally reviewed the images and I agree with this report. WSN: [id number] Ordering Physician: Gabriel Galan Dictated By: Chavo Santoro DO Dictated Date/Time: 08/02/24 4:19 pm Reviewed By: Manuela Gomez MD Signed By: Manuela Gomez MD Signed Date/Time: 08/02/24 4:24 pm Transcribed By: LORELEI Transcribed Date/Time: 08/02/24 10:03 am Patient Care team information Care Team Personnel Name: Not on Staff, PCP Position: S Physician (General Medicine) Member Role: PCP Insurance Providers Guarantor name: MARINE DENIA [employer] [facility] Information #: 1 Payer: BLAIR: ADVANCED PAYMENT EXAM Member Number: [id number] Policy Number: NA Group Number: NA Health Plan Information #: 2 Payer: BLAIR: ADVANCED PAYMENT EXAM Member Number: [id number] Policy Number: NA Group Number: NA
== END 2024-08-12 08:33 | disposition home or self-care (01) ==
LOC: HO.XRAY 08:32
PROVIDERS: PCP Family Medicine; Visit Provider Internal Medicine
DX: K21.9 Gastro-esophageal reflux disease without esophagitis (principal)
CPT/HCPCS: 74221

== ENCOUNTER → 2024-08-12 08:33 | Outpatient (BNV) | payer BC, SELFPAY | PROVIDERS: PCP Family Medicine; Visit Provider Physician Assistant Surgical | DX: K31.7 Polyp of stomach and duodenum (principal) | CPT/HCPCS: 74221 ==

== ENCOUNTER 2024-10-20 14:26 | Outpatient (AMB) | payer BC, SELFPAY ==
--- NOTE | 2024-10-20 14:39 | A.OFFVIS_ITS ---
Vital Signs 10/20/24 14:40 Height 5 ft 3 in Weight 196 lb 3.382 oz BMI 34.8 BP 122/70 Blood Pressure Location Lt brachial Position Sitting Pulse 76 Pulse Source Pulse Oximeter Intake Visit Reasons: follow up/calcium score/echo Physician Office Clin Asst Required: No Allergies lisinopril Allergy (Intermediate, Verified 10/20/24 14:42) dry cough peanut [PEANUTS] Allergy (Unknown, Verified 10/20/24 14:42) ANAPHYLAXIS Peanut (Diagnostic) Allergy (Unknown, Uncoded 10/20/24 14:42) Anaphylaxis Medication List - Last Reconciled 10/20/24 by Ila Shabazz NP-C dupilumab (DupixTrans [employer]) 300 mg subcut Q2W fluocinonide 0.05% 1 appl topical BID losartan 25 mg PO DAILY omeprazole 20 mg PO DAILY 90 days HPI HPI follow up/calcium score/echo: Details: Kathy is a 59-year-old female with past medical history of hypertension, hyperlipidemia, elevated fasting glucose, family history of CAD who presents for follow-up after recent echocardiogram and coronary calcium score. Today she reports that she has been feeling well with no concerning symptoms. She denies having chest discomfort, shortness of breath, heart palpitations. She reports good activity tolerance. She is concerned that her mother had history of coronary artery bypass grafting and she wants to do everything she can to protect her own future health. [facility] Medical History Lower back pain Acid reflux disease Tonsil stone Eczema Surgical History Hx of colonoscopy History of esophagogastroduodenoscopy (EGD) History of hand surgery History of delivery Family History Mother Heart disease COPD (chronic obstructive pulmonary disease) Hx of CABG Father No problems noted. 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 Cognitive needs: No Hearing needs: No Vision needs: Yes (Reading Glasses) Review of Systems Const All systems reviewed & are unremarkable except as noted in HPI and below ENT Denies dizziness Card Denies chest pain, Denies chest pain at rest, Denies chest pain with activity, Denies rapid heart rate, Denies pedal edema, Denies edema, Denies leg edema, Denies lightheadedness, Denies palpitations, Denies dyspnea, Denies dyspnea on exertion and Denies orthopnea Resp Denies cough, Denies dyspnea and Denies dyspnea on exertion GI Denies hematochezia and Denies change in stool character Musc Denies abnormal gait, Denies limited range of motion, Denies muscle cramps, Denies muscle weakness, Denies numbness, Denies radiating pain into limb, Denies stiffness and Denies tingling Neuro Denies abnormal gait, Denies dizziness, Denies numbness and Denies tingling Endo Denies palpitations Physical Exam Vital Signs: Last Vital Signs Pulse 76 10/20/24 14:40 BP 122/70 10/20/24 14:40 BMI result Body Mass Index 34.8 Const General: cooperative, healthy appearing, comfortable and no acute distress Orientation/consciousness: patient oriented x3 Neck Neck: Yes normal visual inspection and Yes no JVD Resp Effort & Inspection: normal respiratory effort Auscultation: clear to auscultation bilaterally, no rales, no rhonchi and no wheezes Cardio Jugular venous distension: no JVD Rate: regular rate Rhythm: regular rhythm Heart sounds: S1 normal heart sound present, S2 normal heart sound present, no murmurs and no rubs Neuro General: patient oriented x3 Extrem General: Yes normal to inspection, No no pedal edema and No calf tenderness Psych Appearance: grossly normal Mental Status: mental status grossly normal Speech and movement: Normal speech and movement present Assessment & Plan Assessment & Plan (1) Family history of coronary artery disease: Code(s): Z82.49 - Family history of ischemic heart disease and other diseases of the circulatory system Category: Medical Plan: Patient reports mother had history of coronary artery bypass grafting. She has cardiac risk factors of hypertension, hyperlipidemia, impaired fasting glucose, family history. She has no known history of heart disease and no anginal symptoms. EKG done last visit shows normal sinus rhythm, rate 78. Echocardiogram done 08/03/2024 was a normal study. A coronary calcium score done 07/29/2024 was 38 in the LAD. Test results reviewed with her in detail. The finding of minimal coronary calcification explained to her. The need for risk factor modification discussed. Signs and symptoms of angina reviewed. She would like to follow with cardiology. Will arrange for a visit in 2 years, sooner if needed (2) Hypercholesterolemia: Code(s): E78.00 - Pure hypercholesterolemia, unspecified Category: Medical Plan: LDL goal less than 100, ideally less than 70. Recent labs showed LDL 144. Discussed statin use and she declines at this time. She would prefer to do lifestyle changes and not medication management. She will work on diet, exercise and weight loss. (3) HTN (hypertension): Code(s): I10 - Essential (primary) hypertension Category: Medical Plan: Well controlled at this time. No med changes made Plan Time spent on chart review, documentation, interview, assessment Coding Level of Care Code Est Pt Level 3 (44093) Complex EM visit Add On G2211 Diagnoses Family history of coronary artery disease Z82.49 Hypercholesterolemia E78.00 HTN (hypertension) I10 Time Spent (min) 24
[2024-10-20 14:40] VITALS: BP 122/70; PULSE 76; BMI 34.8
== END 2024-10-20 15:19 | disposition home or self-care (01) ==
PROVIDERS: PCP Family Medicine; Visit Provider Nurse Practitioner Family
DX: Z82.49 Family history of ischemic heart disease and other diseases of the circulatory system (principal); E78.00 Pure hypercholesterolemia, unspecified; I10 Essential (primary) hypertension
CPT/HCPCS: 99213

== ENCOUNTER → 2024-10-20 14:26 | Outpatient (BNVA) | payer BC, SELFPAY | PROVIDERS: PCP Family Medicine; Visit Provider Nurse Practitioner Family ==

== ENCOUNTER 2024-10-28 15:47 | Outpatient (AMB) | payer BC, SELFPAY ==
[2024-10-28 15:50] VITALS: BP 128/72; PULSE 88; BMI 34.0
--- NOTE | 2024-10-28 15:50 | MHC.OFFVIS ---
Vital Signs 10/28/24 15:50 Height 5 ft 3 in Weight 191 lb 12.835 oz BMI 34.0 BP 128/72 Blood Pressure Location Lt brachial Position Sitting Pulse 88 Intake Visit Reasons: PAtient requested this appt - moved from 415 Intake Note: Kathy presents in the office as a follow up that she requested. CC: She states that she has been unsuccessful with weening off of omeprazole. She states that her GERD is good as long as she takes the omeprazole. 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 Reports was started on omeprazole almost 10 years ago for heartburn. Since then has been on omep 20 mg once daily. Whenever has attempted to stop it, gets rebound heartburn. EGD 2017 was done on ppi and at that time no endoscopic esophagitis or barretts. No bx taken. 10/28/24: Seen in follow up. EGD not approved by insurance. Pt also tried to taper off ppi but was not able to go off it for more than a week. Had recurrence of heartburn. This did not go away with 10, but did go away with 20 mg dosing. No N/V. No difficulty swallowing. Barium swallow reviewed - has hiatal hernia, so likely predisposed to reflux. Also has gastric polyps which need luminal eval to r/o hyperplastic/precancerous polyps. Pt also completed cardiovascular w/up through cards. Calcium score CT also shows fatty liver. LFTs nromal from mar 2024. Pt drinks 2-4 times month. BMI 34. Limited activity levels. Hypercholesterolemia +. Likely prediabetes based on elevated FBS. PFSH Medical History Lower back pain Acid reflux disease Tonsil stone Eczema Surgical History Hx of colonoscopy History of esophagogastroduodenoscopy (EGD) History of hand surgery History of delivery Family History Mother Heart disease COPD (chronic obstructive pulmonary disease) Hx of CABG Father No problems noted. 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 Cognitive needs: No Hearing needs: No Vision needs: Yes (Reading Glasses) Review of Systems Const All systems reviewed & are unremarkable except as noted in HPI and below Physical Exam Vital Signs: Last Vital Signs Pulse 88 10/28/24 15:50 BP 128/72 10/28/24 15:50 BMI result Body Mass Index 34.0 No apparent distress Nonicteric Abdomen soft, nondistended Alert and oriented x3, normal gait Assessment & Plan Assessment & Plan (1) Acid reflux disease: Code(s): K21.9 - Gastro-esophageal reflux disease without esophagitis Category: Medical (2) Gastric polyps: Code(s): K31.7 - Polyp of stomach and duodenum Category: Medical (3) Hiatal hernia: Code(s): K44.9 - Diaphragmatic hernia without obstruction or gangrene Category: Medical (4) Fatty liver: Code(s): K76.0 - Fatty (change of) liver, not elsewhere classified Category: Medical (5) Elevated fasting glucose: Code(s): R73.01 - Impaired fasting glucose Category: Medical (6) Hypercholesterolemia: Code(s): E78.00 - Pure hypercholesterolemia, unspecified Category: Medical Plan 1. GERD: Ddx include reflux melinda given underying HH, EoE melinda given eczema, NERD, rebound pyrosis. Pt not approved for EGD for luminal evaluation by insurance - so unable to check for EoE. Also not able to comment whether has precancerous polyps i.e hyperplastic polyps in stomach that need surveillance/management. Plan: - Will try to book her EGD again - may have to appeal with insurance if denied again as indicated for reasons outlined above. - Cont omeprazole 20 for now - hold x 7-10 days prior to EGD 2. Fatty liver LFTs normal so argue against active inflammation. Pt declines repeat LFTs today. Risk factors include mild etOH use, obesity, prediabetes and HLD. Plan: - Avoid/limit etOH - 10% TBW loss recommended over 6 months - Control of metabolic risk factors such as DM and HLD - Advised to get LFTs done through pcp office - appt in february - for monitoring follow up 6 months Coding Level of Care Code Est Pt Level 4 (39795) Diagnoses Acid reflux disease K21.9 Gastric polyps K31.7 Hiatal hernia K44.9 Fatty liver K76.0 Elevated fasting glucose R73.01 Hypercholesterolemia E78.00
== END 2024-10-28 16:21 | disposition home or self-care (01) ==
PROVIDERS: PCP Family Medicine; Visit Provider Internal Medicine
DX: K21.9 Gastro-esophageal reflux disease without esophagitis (principal); K31.7 Polyp of stomach and duodenum; K44.9 Diaphragmatic hernia without obstruction or gangrene; K76.0 Fatty (change of) liver, not elsewhere classified; R73.01 Impaired fasting glucose; E78.00 Pure hypercholesterolemia, unspecified
CPT/HCPCS: 99214

== ENCOUNTER → 2024-10-28 15:47 | Outpatient (BNVA) | payer BC, SELFPAY | PROVIDERS: PCP Family Medicine; Visit Provider Internal Medicine ==

== ENCOUNTER 2025-05-01 15:43 | Outpatient (AMB) | payer BC, SELFPAY ==
--- NOTE | 2025-05-01 15:45 | MHC.OFFVIS ---
Vital Signs 05/01/25 15:46 Height 5 ft 3 in Weight 189 lb BMI 33.5 BP 133/78 Blood Pressure Location Lt brachial Position Sitting Pulse 86 Intake Visit Reasons: 6m acid reflux Intake Note: Patient in office today in 6 months follow up of acid reflux. CC: Pt reports that her medical insurance denied the EGD Dr. Lorenzo ordered for her. Law Clerk Required: No Accompanied by: Self / Same As Patient Allergies lisinopril Allergy (Intermediate, Verified 05/01/25 15:52) dry cough peanut (PEANUTS) Allergy (Unknown, Verified 05/01/25 15:52) ANAPHYLAXIS Peanut (Diagnostic) Allergy (Unknown, Uncoded 10/28/24 15:55) Anaphylaxis HPI Comments Details: 59 y.o F with PMH of eczema on dupixent, HTN who is here for discussion re PPI. Reports was started on omeprazole almost 10 years ago for heartburn. Since then has been on omep 20 mg once daily. Whenever has attempted to stop it, gets rebound heartburn. EGD 2018 was done on ppi and at that time no endoscopic esophagitis or barretts. No bx taken. 10/28/24: Seen in follow up. EGD not approved by insurance. Pt also tried to taper off ppi but was not able to go off it for more than a week. Had recurrence of heartburn. This did not go away with 10, but did go away with 20 mg dosing. No N/V. No difficulty swallowing. Barium swallow reviewed - has hiatal hernia, so likely predisposed to reflux. Also has gastric polyps which need luminal eval to r/o hyperplastic/precancerous polyps. Pt also completed cardiovascular w/up through cards. Calcium score CT also shows fatty liver. LFTs nromal from mar 2024. Pt drinks 2-4 times month. BMI 34. Limited activity levels. Hypercholesterolemia +. Likely prediabetes based on elevated FBS. 05/01/25: Here for q6m follow up. Reprots was unable to titrate down to 10 on a retrial. Takes omeprazole 20 daily in the morning. Still waiting to hear on EGD. Last colo 2017 (dr valdes) diverticulosis, hemorrhoids. [facility] Medical History Lower back pain Acid reflux disease Tonsil stone Eczema Surgical History Hx of colonoscopy History of esophagogastroduodenoscopy (EGD) History of hand surgery History of delivery Family History Mother Heart disease COPD (chronic obstructive pulmonary disease) Hx of CABG Father No problems noted. 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 Cognitive needs: No Hearing needs: No Vision needs: Yes (Reading Glasses) Review of Systems Const All systems reviewed & are unremarkable except as noted in HPI and below Physical Exam Exam Exam: No apparent distress Nonicteric Abdomen soft, nondistended Alert and oriented x3, normal gait Vital Signs: Last Vital Signs Pulse 86 05/01/25 15:46 BP 133/78 05/01/25 15:46 BMI result Body Mass Index 33.5 Assessment & Plan Assessment & Plan (1) Acid reflux disease: Code(s): K21.9 - Gastro-esophageal reflux disease without esophagitis Category: Medical (2) Gastric polyps: Code(s): K31.7 - Polyp of stomach and duodenum Category: Medical (3) Hiatal hernia: Code(s): K44.9 - Diaphragmatic hernia without obstruction or gangrene Category: Medical (4) Fatty liver: Code(s): K76.0 - Fatty (change of) liver, not elsewhere classified Category: Medical (5) Elevated fasting glucose: Code(s): R73.01 - Impaired fasting glucose Category: Medical (6) Hypercholesterolemia: Code(s): E78.00 - Pure hypercholesterolemia, unspecified Category: Medical Plan 1. GERD: Ddx include reflux melinda given underying HH, EoE melinda given eczema, NERD, rebound pyrosis. Pt not approved for EGD for luminal evaluation by insurance - so unable to check for EoE. Also not able to comment whether has precancerous polyps i.e hyperplastic polyps in stomach that need surveillance/management. Will provide additional clinicals and rebook this. Plan: - EGD to be booked - Cont omeprazole 20 for now - hold x 5-7 days prior to EGD. Ok to take tums/mylanta for break through reflux 2. Fatty liver Noted incidentally on CT coronaries done 2023. Overdue on labs. Has HLD but not a statin. Will recheck labs today Plan: - Avoid/limit etOH - 10% TBW loss recommended over 6 months - Control of metabolic risk factors such as DM and HLD - LFTs, lipid panel and A1c ordered follow up after EGD Orders: Orders Liver Panel Today E78.00 - Pure hypercholesterolemia, unspecified, K76.0 - Fatty (change of) liver, not elsewhere classified Lipid Panel Today E78.00 - Pure hypercholesterolemia, unspecified, K76.0 - Fatty (change of) liver, not elsewhere classified Hemoglobin A1c Today R73.01 - Impaired fasting glucose Coding Level of Care Code Est Pt Level 4 (71862) Diagnoses Acid reflux disease K21.9 Gastric polyps K31.7 Hiatal hernia K44.9 Fatty liver K76.0 Elevated fasting glucose R73.01 Hypercholesterolemia E78.00
[2025-05-01 15:46] VITALS: BP 133/78; PULSE 86; BMI 33.5
--- OUTSIDE RECORDS SUMMARY | 2025-05-01 18:32 | XMS_ITS | Patient Health Record ---
Author Organization [facility] Address [address] [place] [id number] Care Team Providers Care Stage Technician Name Role Phone Benitez Yee Primary Care Provider Leonidas Smith [phone] Allergies Allergen (clinical drug ingredient) Drug/Non Drug Allergy documented on EMR Reaction Allergy Type Onset Date Status animals (uncoded) Unknown Allergy Ac tive peanuts (uncoded) Unknown Allergy Ac tive Reason For Referral No Information Medications Medication SIG (Take, Route, Frequency, Duration) Notes Start Date End Date Status ibuprofen as needed Active Fluocinonide Skin ointment Act jamie Omeprazole 20 MG 1 capsule Orally Once a day Active Social History Tobacco Use: Social History Observation Description Date Details (start date - stop date) Never Smoker NA - NA Tobacco Use/Smoking Question Answer Notes Patient is a nonsmoker Alcohol Screen Question Answer Notes Did you have a drink contain ing alcohol in the past year? Yes How often did you have a dri nk containing alcohol in the past year? 2 to 3 times a week (3 points) How many drinks did you have on a typical day when you were drinking in the past year? 3 or 4 drinks (1 point) How often did you have 6 or more drinks on one occasion in the past year? Never (0 point) Points 4 Interpretation Positive Section Notes: Nonsmoker; 1-2 glasses of wi ne Problems Problem Type SNOMED Code ICD Code Onset Dates Problem Status W/U Status Risk Notes Problem [id number] Encounter for screening for malignant neoplasm of colon (Z12.11) Active confirmed Problem [id number] Gastroesophageal reflux disease, esophagitis presence not specified (K21.9) Active confirmed Plan Of Treatment Future Test Test Name Order Date UPPER GI ENDOSCOPY 09/24/2017 COLONOSCOPY 09/24/2017 Insurance Providers Payer Name Payer Address Payer Phone Subscriber Number Group Number Insured Name Patient Relationship to Insured Coverage Start Date Coverage End Date [facility] [address] [place] [address] [id number] MARINE LOZA Self - patient is the insured Medical (General) History Medical History History ICD Code Asthma- mild--inhaler prn Denies [place],DM,CVA,renal disease Heart palpitations--she reports that she has had normal EKG's GERD Surgical History Surgery Date(Month/Year) 1986 Right hand-- Boxer's fracture 1993 Abscess back of leg due to spider bite
== END 2025-05-01 16:14 | disposition home or self-care (01) ==
LOC: HO.HGI 15:43
PROVIDERS: PCP Family Medicine; Visit Provider Internal Medicine
DX: K21.9 Gastro-esophageal reflux disease without esophagitis (principal); K31.7 Polyp of stomach and duodenum; K44.9 Diaphragmatic hernia without obstruction or gangrene; K76.0 Fatty (change of) liver, not elsewhere classified; R73.01 Impaired fasting glucose; E78.00 Pure hypercholesterolemia, unspecified
CPT/HCPCS: 99214

== ENCOUNTER → 2025-05-01 15:43 | Outpatient (BNVA) | payer BC, SELFPAY | PROVIDERS: PCP Family Medicine; Visit Provider Internal Medicine | DX: K21.9 Gastro-esophageal reflux disease without esophagitis (principal); K44.9 Diaphragmatic hernia without obstruction or gangrene; K76.0 Fatty (change of) liver, not elsewhere classified; R73.01 Impaired fasting glucose; E78.00 Pure hypercholesterolemia, unspecified; Z13.89 Encounter for screening for other disorder ==

== ENCOUNTER 2025-05-02 10:18 | Outpatient (REF) | payer BC, SELFPAY ==
[2025-05-02 11:03] LABS: Hemoglobin A1C 123.5497 umol/L; Total Hemoglobin (HGBA1C) 3527.1133 umol/L
[2025-05-02 11:33] LABS: Alanine Aminotransferase 32 U/L (0-31); Albumin Level 4.5 g/dL (3.5-5.0); Alkaline Phosphatase 120 U/L (39-117); Aspartate Amino Transferase 25 U/L (5-31); Cholesterol 220 mg/dL (<200); HDL Cholesterol 44 mg/dL (>40); Total Protein 7.2 g/dL (6.5-8.0); Triglycerides 261 mg/dL (<150)
--- OUTSIDE RECORDS SUMMARY | 2025-05-02 12:06 | XMS_ITS | Patient Health Record ---
Author Organization [facility] Address [address] [place] [id number] Care Team Providers Care Diamond Blender Name Role Phone Benitez Yee Primary Care Provider Leonidas Smith [phone] Allergies Allergen (clinical drug ingredient) Drug/Non Drug [...] Problem Status W/U Status Risk Notes Problem [id number] Encounter for screening for malignant neoplasm of colon (Z12.11) Active confirmed Problem 041803737 Gastroesophageal reflux disease, esophagitis presence not specified (K21.9) Active confirmed Plan Of Treatment Future Test Test Name Order Date UPPER GI ENDOSCOPY 09/24/2017 COLONOSCOPY 09/24/2017 Insurance Providers Payer Name Payer Address Payer Phone Subscriber Number Group Number Insured Name Patient Relationship to Insured Coverage Start Date Coverage End Date [facility] [address] [place] [address] [id number] MARINE LOZA Self - patient is the insured Medical (General) History Medical History History ICD Code Asthma- mild--inhaler prn Denies [place],DM,CVA,renal disease Heart palpitations--she reports that she has had normal EKG's GERD Surgical History Surgery Date(Month/Year) 1986 Right hand-- Boxer's fracture 1993 Abscess back of leg due to spider bite
== END 2025-05-02 10:19 | disposition home or self-care (01) ==
LOC: HO.LAB 10:18
PROVIDERS: PCP Family Medicine; Visit Provider Internal Medicine
DX: R73.01 Impaired fasting glucose (principal); E78.00 Pure hypercholesterolemia, unspecified; K76.0 Fatty (change of) liver, not elsewhere classified
CPT/HCPCS: 36415; 80061; 80076; 83036

== ENCOUNTER 2025-05-26 11:47 | Day surgery (SDC) | payer BC, SELFPAY ==
--- OUTSIDE RECORDS SUMMARY | 2025-05-08 10:09 | XMS_ITS | Patient Health Record ---
Author Organization [facility] Address [address] [place] [phone] Care Team Providers Care Orchard Hand Name Role Phone Benitez Yee Primary Care Provider Leonidas Smith [phone] Allergies Allergen (clinical drug ingredient) Drug/Non Drug [...] Problem Status W/U Status Risk Notes Problem [id number] Encounter for screening for malignant neoplasm of colon (Z12.11) Active confirmed Problem [id number] Gastroesophageal reflux disease, esophagitis presence not specified (K21.9) Active confirmed Plan Of Treatment Future Test Test Name Order Date UPPER GI ENDOSCOPY 09/24/2017 COLONOSCOPY 09/24/2017 Insurance Providers Payer Name Payer Address Payer Phone Subscriber Number Group Number Insured Name Patient Relationship to Insured Coverage Start Date Coverage End Date [facility] [address] [place] [address] [id number] MARINE LOZA Self - patient is the insured Medical (General) History Medical History History ICD Code Asthma- mild--inhaler prn Denies [place],DM,CVA,renal disease Heart palpitations--she reports that she has had normal EKG's GERD Surgical History Surgery Date(Month/Year) 1986 Right hand-- Boxer's fracture 1993 Abscess back of leg due to spider bite
[2025-05-24 14:56] VITALS: BMI 33.5
--- NOTE | 2025-05-25 09:24 | HO.ANESPROP2 ---
Documented by User: Winsome Patel NP 05/25/25 09:24 HPI - Anesthesia Eval Consult details Narrative: 60yo F for Upper Endoscopy PMFSH Active Problems Active Problems: All Active Problems Fatty liver (Acute) Hiatal hernia (Acute) Gastric polyps (Acute) SOB (shortness of breath) (Acute) Family history of coronary artery disease (Acute) Elevated fasting glucose (Acute) Hypercholesterolemia (Acute) Pre-syncope (Acute) Vertigo (Acute) Right knee pain (Acute) Palpitations (Acute) Laboratory exam ordered as part of routine general medical examination (Acute) HTN (hypertension) (Acute) Acid reflux disease (Acute) Tonsil stone (Acute) Past Medical History Medical History Vertigo Palpitations Hypercholesteremia HTN (hypertension) Fatty liver Hiatal hernia Lower back pain Acid reflux disease Tonsil stone Eczema Family History Family History Mother Heart disease COPD (chronic obstructive pulmonary disease) Hx of CABG Father No problems noted. Brother Heart disease Lung cancer Other Substance use disorder Surgical History Surgical History Hx of colonoscopy History of esophagogastroduodenoscopy (EGD) History of hand surgery History of delivery Social History Social History Housing: House Alcohol intake: current Alcohol intake frequency: a few times a month Alcohol type: wine Patient Tobacco Use Status: Never used Tobacco e-Cigarette/Vaping Use: Never Used Second Hand Smoke Exposure: No Use of substances other than those prescribed or required for medical reasons: No Are you DNR?: No Advance Directives: No Advance Directives Information Provided: Yes Patient : No : No Poor oral hygiene: No service: No Current occupational status: employed 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 Cognitive needs: No Hearing needs: No Vision needs: Yes (Reading Glasses) Meds Allergies Allergy/AdvReac Type Severity Reaction Status Date / Time lisinopril Allergy Intermediate dry cough Verified 05/01/25 15:52 peanut (PEANUTS) Allergy Unknown ANAPHYLAXIS Verified 05/01/25 15:52 Home Medications ?Medication ?Instructions ?Recorded ?Confirmed ?Last Taken ?Type dupilumab 300 mg/2 mL subcutaneous 300 mg subcut Q2W 05/01/25 05/24/25 Unknown History pen injector (Dupixent) Exam Height,Weight and Vital Signs: Height 5 ft 3 in Weight 85.729 kg Assessment and Plan Assessment Anesthesia Assessment: Chart Reviewed Documented by User: Susie Wood MD 05/26/25 13:34 PMFSH Past Medical History Medical History Vertigo Palpitations Hypercholesteremia HTN (hypertension) Fatty liver Hiatal hernia Lower back pain Acid reflux disease Tonsil stone Eczema Family History Family History Mother Heart disease COPD (chronic obstructive pulmonary disease) Hx of CABG Father No problems noted. Brother Heart disease Lung cancer Other Substance use disorder Surgical History Surgical History Hx of colonoscopy History of esophagogastroduodenoscopy (EGD) History of hand surgery History of delivery History of Problems with Anesthesia: No Social History Social History Housing: House Alcohol intake: current Alcohol intake frequency: a few times a month Alcohol type: wine Patient Tobacco Use Status: Never used Tobacco e-Cigarette/Vaping Use: Never Used Second Hand Smoke Exposure: No Use of substances other than those prescribed or required for medical reasons: No Are you DNR?: No Advance Directives: No Advance Directives Information Provided: Yes Patient : No : No Poor oral hygiene: No service: No Current occupational status: employed 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 Cognitive needs: No Hearing needs: No Vision needs: Yes (Reading Glasses) Meds Allergies Allergy/AdvReac Type Severity Reaction Status Date / Time lisinopril Allergy Intermediate dry cough Verified 05/01/25 15:52 peanut (PEANUTS) Allergy Unknown ANAPHYLAXIS Verified 05/01/25 15:52 Home Medications ?Medication ?Instructions ?Recorded ?Confirmed ?Last Taken ?Type dupilumab 300 mg/2 mL subcutaneous 300 mg subcut Q2W 05/01/25 05/24/25 Unknown History pen injector (Dupixent) Exam Airway Mallampati Class: II TM Dist: >3cm Neck ROM: Full Loose/Missing/Broken Teeth: No Heart: RRR Lungs: CTA Assessment and Plan Assessment Anesthesia Assessment: Anesthesia Plan Discussed Final Anesthetic Review History of Problems with Anesthesia: No NPO: Yes ASA Class: II Final Preanesthetic Review: Meds/Allgs Chart Reviewed, Consent Obtained/Reviewed and Anes Risks/Benef Reviewed Patient Risk: Low Procedure Risk: Intermediate Anesthetic Plan Anesthetic Plan: MAC: Disposition: Standard PACU
[2025-05-26 12:26] VITALS: BMI 33.7
[2025-05-26 12:27] VITALS: BP 109/79; PULSE 95; RESP 16; TEMP 36.4; O2SAT 95
--- NOTE | 2025-05-26 12:48 | MHC.SHP ---
Pre-Procedural Eval Section A - 24 Hr Update-Section A only Date of Service: 05/26/25 The patient is an INPATIENT: No The patient has been examined within 24 hours of the surgical procedure. The History & Physical has been completed within 30 days and I have reviewed it.: Yes Section B - Complete if H&P > 30 days Chief Complaint: Polyp of stomach and duodenum,gerd, Allergies: Allergies Allergy/AdvReac Type Severity Reaction Status Date / Time lisinopril Allergy Intermediate dry cough Verified 05/01/25 15:52 peanut (PEANUTS) Allergy Unknown ANAPHYLAXIS Verified 05/01/25 15:52 Plan Diagnosis/Plan: Unchanged I have reviewed the history and physical and performed a pertinent physical examination on my patient. No changes have occurred unless specified. Time Spent With Patient Time: Total time managing care of this patient today ____ minutes.
[2025-05-26] MEDS: Lactated Ringers 1,000 ML 100 ML IVCONT (12:59)
[2025-05-26 14:00] VITALS: BP 100/63; PULSE 105; RESP 16; TEMP 36.2; O2SAT 96
--- NOTE | 2025-05-26 14:03 | P.OP_ITS ---
Operative Note Operative Note Date of Service: 05/26/25 Narrative: Procedure: Esophagogastroduodenoscopy Endoscopist: Naty Lorenzo MD Indication: GERD, Gastric polyps Anesthesia Provider: Jordan Campbell CRNA Anesthesia Type: MAC ?? EGD Procedure:?? The procedure, indications, preparation and potential complications were reviewed with the patient, who indicated understanding and gave written informed consent to proceed. A physical exam was performed. The endoscope was introduced through the mouth, and advanced to the second part of duodenum. The mucosa was carefully examined on slow withdrawal of the endoscope. The patient tolerated the procedure well. There were no immediate complications.? ? EGD Findings:? * Esophagus:? Normal mucosa noted in the entire esophagus. The Z line was at 34 cm with a small hiatal hernia noted with hiatus at 36 cm. * Stomach:? Erythema, edema and scant heme noted in the body and antrum of the stomach. Retroflexion was performed in the cardia with a Hill grade 2 hiatal hernia. There were numerous large sessile and pedunculated polyps in the gastric body, some with overlying inflammatory changes. Hot snare polypectomy was performed for the larger polyps measuring 10-25 mm. These were retrieved using a rescue net. Cold forceps biopsies were taken from the gastric body and antrum. * Duodenum:? Normal mucosa was noted in the whole of the examined duodenum. EGD Impressions:? * Normal esophagus * Hiatal hernia * Gastritis (biopsy) * Gastric polyps (hot snare) * Normal duodenum ?? Recommendations:?? * Follow biopsy results. Our office will call or send a letter with results within 7-10 days. * Resume PPI therapy. * No obvious esophagitis noted today despite being OFF ppi x 7 days. * If H pylori +, patient will be prescribed eradication therapy followed by test of cure. * Avoid NSAIDs. * Repeat EGD if polyps are hyperplastic for complete removal. * Can also review using Butler at that time for ? nonerosive GERD. Above has been reviewed with the patient.
[2025-05-26 14:15] VITALS: BP 111/65; PULSE 80; RESP 13; TEMP 36.2; O2SAT 98
== END 2025-05-26 14:52 | disposition home or self-care (01) ==
PROVIDERS: PCP Family Medicine; Visit Provider Internal Medicine
PROC: 0DJ08ZZ Inspection of Upper Intestinal Tract, Via Natural or Artificial Opening Endoscopic (ICD-10-PCS; CPT 43235; principal; 2025-05-26 13:30)
DX: K21.9 Gastro-esophageal reflux disease without esophagitis (principal); K31.7 Polyp of stomach and duodenum; K29.50 Unspecified chronic gastritis without bleeding; K44.9 Diaphragmatic hernia without obstruction or gangrene; K76.0 Fatty (change of) liver, not elsewhere classified; I10 Essential (primary) hypertension; E78.00 Pure hypercholesterolemia, unspecified; R73.01 Impaired fasting glucose; L30.9 Dermatitis, unspecified; Z79.899 Other long term (current) drug therapy; Z88.8 Allergy status to other drugs, medicaments and biological substances; Z91.010 Allergy to peanuts; Z98.890 Other specified postprocedural states
CPT/HCPCS: 43251; 43239; 88305; 88313; 88342; J1308; J2704

== ENCOUNTER → 2025-05-26 11:47 | Outpatient (BNV) | payer BC, SELFPAY | PROVIDERS: PCP Family Medicine; Visit Provider Internal Medicine | DX: K21.9 Gastro-esophageal reflux disease without esophagitis (principal); K29.71 Gastritis, unspecified, with bleeding; K31.7 Polyp of stomach and duodenum | CPT/HCPCS: 43251 ==

== ENCOUNTER 2025-06-01 07:53 | Outpatient (REF) | payer BC, SELFPAY ==
[2025-06-01 11:33] LABS: MANUAL DIFF FLAG NO
[2025-06-01 11:44] LABS: Hematocrit 38.7 % (37.0-47.0); Hemoglobin 12.7 g/dl (12.0-16.0); Imm Gran Abs Auto 0.02 X10*3/uL (0.00-0.03); Imm Gran Pct Auto 0.4 % (0.0-0.4); Lymphocytes Absolute Auto 1.5 X10*3/uL (1.2-4.9); Mean Corpuscular HGB Conc 32.8 g/dl (31.0-35.0); Mean Corpuscular Hemoglobin 30.7 pg (27.0-33.0); Mean Corpuscular Volume 93.5 fL (80.0-98.0); NRBC Abs Auto 0.000 X10*3/uL (0.0-0.012); NRBC Pct Auto 0.0 /100WBC (0.0-0.2); Platelet Count 197 X10*3/uL (160-400); Red Blood Count 4.14 X10*6/uL (4.20-5.50); White Blood Count 5.7 X10*3/uL (4.8-10.8)
[2025-06-01 12:16] LABS: Alanine Aminotransferase 48 U/L (0-31); Albumin Level 4.5 g/dL (3.5-5.0); Alkaline Phosphatase 120 U/L (39-117); Anion Gap 10 (12-20); Aspartate Amino Transferase 34 U/L (5-31); Blood Urea Nitrogen 8 mg/dL (9-16); Calcium 9.1 mg/dL (8.4-10.2); Carbon Dioxide 27 mmol/L (22-29); Chloride 109 mmol/L (96-108); Cholesterol 199 mg/dL (<200); Estimated Glomerular Filt Rate > 60; HDL Cholesterol 41 mg/dL (>40); Potassium 4.0 mmol/L (3.3-5.1); Sodium 142 mmol/L (135-145); Total Protein 7.1 g/dL (6.5-8.0); Triglycerides 103 mg/dL (<150); Uric Acid 4.2 mg/dL (2.4-5.7)
[2025-06-02 09:34] LABS: Lyme Abs Screen <0.90 index
[2025-06-07 11:48] LABS: Anti Nuclear Antibody Screen NEGATIVE (NEGATIVE)
== END 2025-06-01 07:54 | disposition home or self-care (01) ==
LOC: HO.WFDLDS 07:53
PROVIDERS: PCP Family Medicine; Visit Provider Physician Assistant
DX: Z00.00 Encounter for general adult medical examination without abnormal findings (principal); I10 Essential (primary) hypertension; E78.00 Pure hypercholesterolemia, unspecified; M25.50 Pain in unspecified joint; R79.89 Other specified abnormal findings of blood chemistry; R73.01 Impaired fasting glucose
CPT/HCPCS: 36415; 80048; 80061; 80076; 84443; 84550; 85025; 85652; 86038; 86039; 86431; 86617; 86618; 96127

== ENCOUNTER 2025-06-01 07:53 | Outpatient (AMB) | payer BC, SELFPAY ==
--- NOTE | 2025-06-01 07:56 | A.OFFPC_ITS ---
Vital Signs 06/01/25 08:01 Weight 193 lb 4 oz BP 126/84 Blood Pressure Location Lt brachial Position Sitting Respiration 12 Pulse 79 Pulse Source Pulse Oximeter Temp 98.3 F Temp Source Oral Pulse Oximetry (%) 96 Oxygen Delivery Method Room Air Intake Visit Reasons: cpe Intake Note: Physical Shaker Washer Required: No Allergies peanut (PEANUTS) Allergy (Unknown, Verified 06/01/25 08:02) ANAPHYLAXIS lisinopril Adverse Reaction (Intermediate, Verified 06/01/25 08:03) dry cough Medication List - Last Reconciled 06/01/25 by Connie Coley PA-C dupilumab (Dupixent) 300 mg subcut Q2W losartan 25 mg PO DAILY omeprazole 20 mg PO DAILY Tobacco use date assessed: 06/01/25 Dental Screening Dental Screen Date: 06/01/25 Did you have a dental visit in the last 12 months?: Yes Did you have a dental problem in the last 6 months where you did not have access to dental care?: No Was dental information given to patient?: Patient has dentist HPI cpe HPI Details Patient is a 60-year-old female who presents today for a physical exam. She normally follows with Dr. Millan. She has a significant past medical history of fatty liver, gastric polyps, GERD, hiatal hernia, hyperlipidemia, hypertension and family history of heart disease. She does complain today of some bilateral finger pain and stiffness and just feeling overall like she is having more aches and pains the normal. No injuries. 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 CV: Blood pressure today in the office 126/84. She is currently on losartan 25 mg daily. She has follow up with Cardiology. GI: On omeprazole 20 mg daily. Had EDG last week which showed gastritis and polyps. scheduled follow up 07/10. Derm: On Dupixent with atopic dermatitis Family Court Registrar: booked 07/13 Mammo: Overdue Bone density: Never had Colonoscopy: Up-to-date [facility] Medical History (Updated 06/01/25 @ 08:42 by Connie Coley PA-C) Vertigo Palpitations Hypercholesteremia HTN (hypertension) Fatty liver Hiatal hernia Lower back pain Acid reflux disease Tonsil stone Eczema Surgical History (Updated 06/01/25 @ 08:02 by Destinee Robledo CMA) H/O endoscopy Hx of colonoscopy History of esophagogastroduodenoscopy (EGD) History of hand surgery History of delivery Family History Mother Heart disease COPD (chronic obstructive pulmonary disease) Hx of CABG Father No problems noted. 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 1. Little interest or pleasure in doing things: not at all 2. Feeling down, depressed, or hopeless: not at all 3. Trouble falling or staying asleep, or sleeping too much: nearly every day 4. Feeling tired or having little energy: more than half the days 5. Poor appetite or overeating: several days 6. Feeling bad about yourself - or that you are a failure or have let yourself or your family down: not at all 7. Trouble concentrating on things, such as reading the newspaper or watching television: not at all 8. Moving or speaking so slowly that other people could have noticed. Or the opposite - being so fidgety or restless that you have been moving around a lot more than usual: not at all 9. Thoughts that you would be better off or of hurting yourself in some way: not at all Total score: 6 Depression Screening Interpretation: Positive Depression Screening Follow-up: Follow-up Visit Requested Depression Screening Done: Yes 12559 - PHQ-9 Billing: Yes Source: Developed by Drs. Leonidas Piper, Radha Brunson, Armaan Kaur and colleagues, with an educational melina from [facility]. Thrive Questionnaire Date Thrive assessed: 03/22/24 I am a: Patient What is your living situation today?: I have a steady place to live Within the past 12 months, did the food you bought not last and you didn't have the money to get more?: Never true Within the past 12 months, did you worry whether your food would run out before you got money to buy more?: Never true Do you have trouble paying for medicines?: No Do you have trouble getting transportation to medical appointments?: No Do you have trouble paying your heating and electricity bill?: No Do you have trouble taking care of your child, family member or friend?: No Do you have trouble with day-to-day activities such as bathing, preparing meals, shopping, managing finances, etc.?: No Are you currently unemployed and looking for a job?: No Are you interested in more education?: No Please select the resources that you would like help with: None Currently or been in a relationship where the following occur: No concerns reported THRIVE Score: 0 AUDIT C Alcohol Use Questionnaire (AUDIT-C) 1. How often do you have a drink containing alcohol?: 2-4 times a month 2. How many drinks containing alcohol do you have on a typical day when you are drinking?: 1 or 2 3. How often do you have six or more drinks on one occasion?: Less than monthly Total Score: 3 MICHAEL-7 AMB Questionnaire MICHAEL-7 Date MICHAEL - 7 assessed: 03/22/24 Feeling nervous, anxious, or on edge: 0 = Not at all Not being able to stop or control worryin = Several days Worrying too much about different things: 0 = Not at all Trouble relaxin = Not at all Being so restless that it is hard to sit still: 0 = Not at all Becoming easily annoyed or irritable: 1 = Several days Feeling afraid as if something awful might happen: 0 = Not at all Total MICHAEL-7 score (0-4 normal; 5-9 mild; 10-14 moderate; 15-21 severe): 2 Source: Developed by Drs. Leonidas Piper, Radha Brunson, Armaan Kaur and colleagues, with an educational melina from [employer] MICHAEL-7 Assessment Billing MICHAEL-7 Assessment Tool: MICHAEL-7 Assessment 59169 Physical exam (Primary Care) Vital Signs: Last Vital Signs Temp 98.3 F 06/01/25 08:01 Pulse 79 06/01/25 08:01 Resp 12 06/01/25 08:01 BP 126/84 06/01/25 08:01 Pulse Ox 96 06/01/25 08:01 Oxygen Delivery Method Room Air 06/01/25 08:01 Tobacco/Smoking Status: Tobacco use Status Tobacco use date assessed 06/01/25 06/01/25 08:08 Patient Tobacco Use Status Never used Tobacco 06/01/25 07:59 e-Cigarette/Vaping Use Never Used 06/01/25 07:59 PHQ-9: PHQ-9 Score PHQ-9: Total score 6 06/01/25 07:59 Depression Screening Interpretation: Positive Depression Screening Follow-up: Follow-up Visit Requested Thrive Assessment: Date of Thrive Assessment Date Thrive assessed 03/22/24 06/01/25 07:59 Currently or been in a relationship where the following occur: No concerns re ported Const Orientation/consciousness: patient oriented x3 HENMT Ears: hearing grossly normal bilaterally and TM's normal bilaterally General nose exam: No nasal polyps present Face and sinus: Yes sinuses nontender Mouth: Normal oral and palatal mucosa present Eyes Pupils: Equal, round and reactive pupils present EOM: EOMs intact bilaterally Neck Neck: Yes full ROM and Yes no lymphadenopathy Thyroid: Thyroid normal Chest Chest palpation & inspection: normal inspection of the chest Resp Auscultation: clear to auscultation bilaterally Cardio Rate: regular rate Rhythm: regular rhythm Heart sounds: S1 normal heart sound present and S2 normal heart sound present Peripheral pulses: Peripheral pulses 2+ throughout GI Other: Soft, nontender Auscultation: normal bowel sounds Rectal Exam - Female: deferred General: Yes no CVA tenderness Back/Spine/Pelvis Other: Nontender Back: no CVA tenderness Skin General skin exam: no rashes or lesions noted Neuro General: patient oriented x3, gait normal, CN's II-XI intact bilaterally and deep tendon reflexes 2+ bilaterally Cranial nerves: Yes Equal, round and reactive pupils present Motor exam (neuro): 5/5 motor strength present throughout Sensory Exam: double simultaneous stimulation for sensation normal Coordination: [id number] test normal and Romberg test negative Extrem General: Yes normal to inspection and Yes full ROM Psych Affect: normal affect Attitude: cooperative Thought process: Normal thought process present Thought content: Normal thought content present Insight: Good insight present (Psych) Judgement: Good judgement present (Psych) Results Reviewed Results Reviewed: Laboratory Tests 10/12/21 04/14/24 05/02/25 09:25 07:20 10:28 Estimat Average Glucose 108 Hemoglobin A1c % 5.4 AST 30 18 25 ALT 36 H 28 32 H Total Bilirubin 0.5 Alkaline Phosphatase 123 H 106 120 H Direct Bilirubin 0.1 Triglycerides 261 H Cholesterol 220 H LDL Cholesterol, Calc 124 H HDL Cholesterol 44 Coding Level of Care Code Est Pt Level 3 (32092) Est Pt Prev Care 40-64y(65853) Diagnoses Routine general medical examination at a health care facility Z00.00 HTN (hypertension) I10 Hypercholesterolemia E78.00 Polyarthralgia M25.50 Elevated LFTs R79.89 Additional Codes PHQ-9 - 32055 - PHQ-9 Billing: Yes ([id number]) MICHAEL-7 Assessment Billing - MICHAEL-7 Assessment Tool: MICHAEL-7 Assessment 69587 ([id number]) Assessment & Plan Assessment & Plan (1) Routine general medical examination at a health care facility: Code(s): Z00.00 - Encounter for general adult medical examination without abnormal findings Plan: Health maintenance reviewed Labs reviewed and ordered Bone density and mammogram ordered Offered flu shot but declines this today (2) HTN (hypertension): Code(s): I10 - Essential (primary) hypertension Category: Medical Plan: WNL. Continue current regimen (3) Hypercholesterolemia: Code(s): E78.00 - Pure hypercholesterolemia, unspecified Category: Medical Plan: She is going to work on a low-fat diet and we will recheck in the few months. (4) Polyarthralgia: Code(s): M25.50 - Pain in unspecified joint Category: Medical Plan: Labs ordered today. We will follow up pending test results (5) Elevated LFTs: Code(s): R79.89 - Other specified abnormal findings of blood chemistry Category: Medical Plan: Ultrasound ordered Labs ordered and she is going to work on a healthy diet for a few months and we will recheck this. Orders: Orders XR DEXA axial skeleton Today Z78.0 - Asymptomatic menopausal state Liver Panel 3 Months E78.00 - Pure hypercholesterolemia, unspecified, I10 - Essential (primary) hypertension, Z00.00 - Encounter for general adult medical examination without abnormal findings TSH reflex Free T4 Today E78.00 - Pure hypercholesterolemia, unspecified, I10 - Essential (primary) hypertension, Z00.00 - Encounter for general adult medical examination without abnormal findings Basic Metabolic Panel Today E78.00 - Pure hypercholesterolemia, unspecified, I10 - Essential (primary) hypertension, Z00.00 - Encounter for general adult medical examination without abnormal findings Rheumatoid Factor Today M25.50 - Pain in unspecified joint [place] Reflex Titer and Pattern Today M25.50 - Pain in unspecified joint Lyme IgG/IgM w/reflex to WB Today M25.50 - Pain in unspecified joint MM screening mammo BI Today Z12.31 - Encounter for screening mammogram for malignant neoplasm of breast Lipid Panel 3 Months E78.00 - Pure hypercholesterolemia, unspecified, I10 - Essential (primary) hypertension, Z00.00 - Encounter for general adult medical examination without abnormal findings Complete Blood Count Auto Diff Today E78.00 - Pure hypercholesterolemia, unspecified, I10 - Essential (primary) hypertension, Z00.00 - Encounter for general adult medical examination without abnormal findings US abdomen comp w elastography Today E78.00 - Pure hypercholesterolemia, unspecified, K76.0 - Fatty (change of) liver, not elsewhere classified, R79.89 - Other specified abnormal findings of blood chemistry Erythrocyte Sedimentation Rate Today M25.50 - Pain in unspecified joint Uric Acid Today M25.50 - Pain in unspecified joint
[2025-06-01 08:01] VITALS: BP 126/84; PULSE 79; RESP 12; TEMP 36.8; O2SAT 96
== END 2025-06-01 08:39 | disposition home or self-care (01) ==
LOC: HO.HMCFM 07:54
PROVIDERS: PCP Family Medicine; Visit Provider Physician Assistant
DX: Z00.00 Encounter for general adult medical examination without abnormal findings (principal); I10 Essential (primary) hypertension; E78.00 Pure hypercholesterolemia, unspecified; M25.50 Pain in unspecified joint; R79.89 Other specified abnormal findings of blood chemistry

== ENCOUNTER 2025-07-10 14:36 | Outpatient (AMB) | payer BC, SELFPAY ==
--- NOTE | 2025-07-10 14:43 | A.OFFVIS_ITS ---
Vital Signs 07/10/25 14:47 Height 5 ft 3 in Weight 191 lb 12.835 oz BMI 34.0 BP 131/73 Blood Pressure Location Lt brachial Position Sitting Pulse 78 Intake Visit Reasons: s/p EGD Intake Note: Kathy presents in the office as a follow up as a follow up EGD. CC: States that she is just here for results to her procedure. Food Service Supervisor Required: No Allergies peanut (PEANUTS) Allergy (Unknown, Verified 07/10/25 14:47) ANAPHYLAXIS lisinopril Adverse Reaction (Intermediate, Verified 07/10/25 14:47) dry cough HPI Comments Details: 59 y.o F with PMH of eczema on dupixent, HTN who is here for discussion re PPI. Reports was started on omeprazole almost 10 years ago for heartburn. Since then has been on omep 20 mg once daily. Whenever has attempted to stop it, gets rebound heartburn. EGD 2018 was done on ppi and at that time no endoscopic esophagitis or barretts. No bx taken. 10/28/24: Seen in follow up. EGD not approved by insurance. Pt also tried to taper off ppi but was not able to go off it for more than a week. Had recurrence of heartburn. This did not go away with 10, but did go away with 20 mg dosing. No N/V. No difficulty swallowing. Barium swallow reviewed - has hiatal hernia, so likely predisposed to reflux. Also has gastric polyps which need luminal eval to r/o hyperplastic/precancerous polyps. Pt also completed cardiovascular w/up through cards. Calcium score CT also shows fatty liver. LFTs nromal from mar 2024. Pt drinks 2-4 times month. BMI 34. Limited activity levels. Hypercholesterolemia +. Likely prediabetes based on elevated FBS. 05/01/25: Here for q6m follow up. Reprots was unable to titrate down to 10 on a retrial. Takes omeprazole 20 daily in the morning. Still waiting to hear on EGD. Last colo 2017 (dr valdes) diverticulosis, hemorrhoids. 05/26/25 EGD: * Normal esophagus * Hiatal hernia * Gastritis (biopsy) * Gastric polyps (hot snare) * Normal duodenum Path: A. Stomach, antrum, biopsy: Antral-type mucosa with mild chronic inactive inflammation; no Helicobacter organisms seen. B. Stomach, body, biopsy: Oxyntic mucosa with mild chronic inactive inflammation; no Helicobacter organisms seen. C. Stomach, polypectomies: Fundic gland polyps with background mild chronic inactive inflammation; no Helicobacter organisms seen 07/10/25: Here for follow up. No acute GI issues today. Results of EGD and path reviewed. Benign gastric polyps. Pt on omeprazole 20 once daily for gastritis. REviewed that would recommend continuing this for 8 weeks total and then slowly tapering it off. If unable to taper off PPI, will recommend EGD with alvarez. To note- pt also on dupixent for EoE. [facility] Medical History Vertigo Palpitations Hypercholesteremia HTN (hypertension) Fatty liver Hiatal hernia Lower back pain Acid reflux disease Tonsil stone Eczema Surgical History H/O endoscopy Hx of colonoscopy History of esophagogastroduodenoscopy (EGD) History of hand surgery History of delivery Family History Mother Heart disease COPD (chronic obstructive pulmonary disease) Hx of CABG Father No problems noted. 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 Current occupational exposures/hazards: No Cognitive needs: No Hearing needs: No Vision needs: Yes (Reading Glasses) Review of Systems Const All systems reviewed & are unremarkable except as noted in HPI and below Physical Exam Exam Exam: No apparent distress Nonicteric Abdomen soft, nondistended Alert and oriented x3, normal gait Vital Signs: Last Vital Signs Pulse 78 07/10/25 14:47 BP 131/73 07/10/25 14:47 BMI result Body Mass Index 34.0 Assessment & Plan Assessment & Plan (1) Acid reflux disease: Code(s): K21.9 - Gastro-esophageal reflux disease without esophagitis Category: Medical (2) Gastric polyps: Code(s): K31.7 - Polyp of stomach and duodenum Category: Medical (3) Hiatal hernia: Code(s): K44.9 - Diaphragmatic hernia without obstruction or gangrene Category: Medical Plan Discussed with the pt that no erosive esophagitis noted on most recent EGD which was done OFF ppi x 7 days. Would recommend completing PPI x 8 weeks for gastritis and then tapering it off. if unable to taper it off, and has reflux related sx would recommend EGD with alvarez study. Would also obtain esophageal bx at that time to r/o EoE. Pt on dupixent for eczema. Otherwise, if able to taper it off, will isaías a routine follow up in 4 months. CRC screening due in 2027. Coding Level of Care Code Est Pt Level 4 (71362) Diagnoses Acid reflux disease K21.9 Gastric polyps K31.7 Hiatal hernia K44.9
[2025-07-10 14:47] VITALS: BP 131/73; PULSE 78; BMI 34.0
== END 2025-07-10 15:07 | disposition home or self-care (01) ==
LOC: HO.HGI 14:37
PROVIDERS: PCP Family Medicine; Visit Provider Internal Medicine
DX: K21.9 Gastro-esophageal reflux disease without esophagitis (principal); K31.7 Polyp of stomach and duodenum; K44.9 Diaphragmatic hernia without obstruction or gangrene
CPT/HCPCS: 99214

== ENCOUNTER 2025-07-13 08:03 | Outpatient (AMB) | payer BC, SELFPAY ==
[2025-07-13 08:07] VITALS: BP 114/78; BMI 34.5
--- NOTE | 2025-07-13 08:07 | A.OFFVIS_ITS ---
Vital Signs 07/13/25 08:07 Height 5 ft 3 in Weight 195 lb BMI 34.5 BP 114/78 Intake Visit Reasons: PREP PERSON annual exam Intake Note: Last pap before covid normal hx per pt Attorney General: Attorney General Present (Sandra) Allergies peanut (PEANUTS) Allergy (Unknown, Verified 07/13/25 08:07) ANAPHYLAXIS lisinopril Adverse Reaction (Intermediate, Verified 07/13/25 08:07) dry cough HPI Comments Details: Patient is a postmenopausal woman presenting for her the new patient annual air pollution compliance inspector examination. 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 She thinks she may be sensitive certain foods. Currently sexually active in years due to partner medical concerns. STI testing offered; she declined. Attempting to eat a healthy diet with calcium and vitamin D and stays active with exercise. Last pap smear; years ago, negative. Last mammogram; 2023. Colonoscopy is UTD. Denies any family history of breast, ovarian or colon cancer. PFSH Medical History Vertigo Palpitations Hypercholesteremia HTN (hypertension) Fatty liver Hiatal hernia Lower back pain Acid reflux disease Tonsil stone Eczema Surgical History H/O endoscopy Hx of colonoscopy History of esophagogastroduodenoscopy (EGD) History of hand surgery History of delivery Family History Mother Heart disease COPD (chronic obstructive pulmonary disease) Hx of CABG Father No problems noted. 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 Current occupational exposures/hazards: No Cognitive needs: No Hearing needs: No Vision needs: Yes (Reading Glasses) Female Reproductive History Menstrual Total pregnancies: 2 Full term: 1 Number of Living Children: 1 Ab induced: 1 Date of Mammogram: 11/16/23 (Birad 1) Review of Systems Const All systems reviewed & are unremarkable except as noted in HPI and below Reports as per HPI Eyes Reports no additional complaints ENT Reports no additional complaints Card Reports no additional complaints Resp Reports no additional complaints GI Reports as per HPI and Reports no additional complaints Reports as per HPI Musc Reports no additional complaints Skin/Breast Reports as per HPI Neuro Reports no additional complaints Psych Reports no additional complaints Endo Reports no additional complaints Rjainder/Lymph Reports no additional complaints Aller/Immun Reports no additional complaints Physical Exam Vital Signs: Last Vital Signs BP 114/78 07/13/25 08:07 BMI result Body Mass Index 34.5 Const General: cooperative, healthy appearing, no acute distress, well developed and alert Orientation/consciousness: patient oriented x3 HEENT Head: Yes normal to inspection Eyes General: appearance normal, both eyes and all related structures Neck Neck: Yes normal visual inspection Thyroid: Thyroid normal Chest Chest palpation & inspection: normal inspection of the chest and other (no puckering, dimpling, peau de orange, retraction, discharge, masses) Breast/axilla inspection: normal inspection of the breasts Breast/axilla palpation: normal palpation of the breasts Resp Effort & Inspection: normal respiratory effort GI Inspection: Yes normal to inspection Palpation (GI): Soft to palpation Rectal Exam - Female: deferred General: Yes bladder normal to palpation External Female Exam: normal external appearance and normal appearance of the urethra Speculum Exam - Vagina: normal appearance of the vagina, normal palpation, normal vaginal discharge and vagina atrophic Speculum Exam - Cervix: normal appearance of the cervix, normal palpation and Other cervical findings present (Atrophic, bled with Pap) Bimanual exam- vagina & uterus: normal bimanual exam, normal palpation, uterine size normal, bladder normal to palpation, normal palpation and non-tender Bimanual Exam- Adnexa, other: no masses Skin General skin exam: no rashes or lesions noted Rashes: no rashes Neuro General: patient oriented x3 Cognition (Neuro): normal cognition Extrem General: Yes normal to inspection Psych Attitude: cooperative Thought process: Normal thought process present Results AMB Urinalysis, Automated UA Leukoctes 0 Michelle/uL Last Edit by JERRY Batista on 07/13/25 09:14 UA Nitrite Negative Last Edit by JERRY Batista on 07/13/25 09:14 UA Urobilinogen 0 mg/dL Last Edit by Diane Ledezma, A on 07/13/25 09:1 4 UA Protein 0 mg/dL Last Edit by Diane Ledezma, A on 07/13/25 09:14 UA pH 6.0 Last Edit by Diane Ledezma, A on 07/13/25 09:14 UA Blood 0 Luis/uL Last Edit by Diane Ledezma, A on 07/13/25 09:14 UA Specific [place] 1.020 Last Edit by Diane Ledezma, A on 07/13/25 09:14 UA Ketone Negative Last Edit by Diane Ledezma [facility] on 07/13/25 09:14 UA Bilirubin 0 mg/dL Last Edit by Diane Ledezma, A on 07/13/25 09:14 UA Glucose 0 mg/dL Last Edit by Diane Ledezma [facility] on 07/13/25 09:14 Assessment & Plan Assessment & Plan (1) Encounter for well woman exam with routine gynecological exam: Code(s): Z01.419 - Encounter for gynecological examination (general) (routine) without abnormal findings Category: Medical Plan: Discussed: Current recommendations for pap smears per ASCCP guidelines. Breast awareness, periodic self breast exams and yearly mammogram. Maintain a healthy lifestyle, well balanced diet including Calcium 1,200 mg and Vitamin D 600 IU daily, and routine exercise. Calcium, exercise, menopausal information- handout and website resources provided. Contact the office with any postmenopausal bleeding. Patient verbalizes understanding and agrees to the plan of care. She was given opportunity to ask questions and all questions were answered to the best of my ability. RTO in 1 year for annual air pollution compliance inspector exam. This note is constructed using voice recognition software. While every effort has been made to ensure accuracy, criminal justice instructor errors may have been included. (2) Pelvic cramping: Code(s): R10.20 - Pelvic and perineal pain unspecified side Plan: UA clean-catch obtained, no leukocytes or nitrates. Advised to call if any changes with pelvic pain for further eval, and to consider dietary changes follow up with PCP as needed. The patient expressed understanding and agreement with the plan of care. All of her questions and concerns were addressed to the best of my ability. Plan This note is constructed using voice recognition software. While every effort has been made to ensure accuracy, criminal justice instructor errors may have been included. Orders: Orders Pap Smear Today Z01.419 - Encounter for gynecological examination (general) (routine) without abnormal findings AMB Urinalysis Automated Today R10.20 - Pelvic and perineal pain unspecified side HPV High risk Today Z01.419 - Encounter for gynecological examination (general) (routine) without abnormal findings Coding Level of Care Code New Pt Prev Care 40-64y(58365) Diagnoses Encounter for well woman exam with routine gynecological exam Z01.419 Pelvic cramping R10.20
--- OUTSIDE RECORDS SUMMARY | 2025-07-13 08:21 | XMS_ITS | Patient Health Record ---
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 Automatic Name Role Phone Benitez Yee Primary Care Provider Leonidas Smith [phone] Allergies Allergen (clinical drug ingredient) Drug/Non Drug Allergy documented on EMR Reaction Allergy Type Onset Date Status animals (uncoded) Unknown Allergy Ac tive peanuts (uncoded) Unknown Allergy Ac tive Reason For Referral No Information Medications Medication SIG (Take, Route, Frequency, Duration) Notes Start Date End Date Status ibuprofen as needed Active Fluocinonide Skin ointment Act jamie Omeprazole 20 MG Capsule Delayed Release 1 capsule Orally Once a day Active Social History Tobacco Use: Social History Observation Description Date Details (start date - stop date) Never Smoker NA - NA Social History Drugs/Alcohol: Social Info Question Answer Notes Alcohol Screen Did you have a drink containing alcohol in the past year? Yes How often did you have a drink containing alcohol in the past year? 2 to 3 times a week (3 points) How many drinks did you have on a typical day when you were drinking in the past year? 3 or 4 drinks (1 point) How often did you have 6 or more drinks on one occasion in the past year? 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 Caffeine: 1-2 cups per day in the AM Section Notes: Nonsmoker; 1-2 glasses of wi ne Problems Problem Type SNOMED Code ICD Code Onset Dates Problem Status W/U Status Risk Notes Problem Screening for malignant neoplasm of colon (398260579) Encounter for screening for malignant neoplasm of colon (Z12.11) Active confirmed Problem Gastroesophageal reflux disease (594204369) Gastroesophageal reflux disease, esophagitis presence not specified (K21.9) Active confirmed Plan Of Treatment Future Test Test Name Order Date UPPER GI ENDOSCOPY 09/24/2017 COLONOSCOPY 09/24/2017 Insurance Providers Payer Name Payer Address Payer Phone Subscriber Number Group Number Insured Name Patient Relationship to Insured Coverage Start Date Coverage End Date [facility] [address] [place] [address] [id number] MARINE LOZA Self - patient is the insured Medical (General) History Medical History History ICD Code Asthma- mild--inhaler prn Denies PR,DM,CVA,renal disease Heart palpitations--she reports that she has had normal EKG's GERD Surgical History Surgery Date(Month/Year) 1986 Right hand-- Boxer's fracture 1993 Abscess back of leg due to spider bite
== END 2025-07-13 09:44 | disposition home or self-care (01) ==
LOC: HO.HWS 08:04
PROVIDERS: PCP Family Medicine; Visit Provider Advanced Practice Midwife
DX: Z01.419 Encounter for gynecological examination (general) (routine) without abnormal findings (principal); R10.20 Pelvic and perineal pain unspecified side
CPT/HCPCS: 99386; 99459

== ENCOUNTER 2025-07-13 08:03 | Outpatient (REF) | payer BC, SELFPAY | END 2025-07-13 08:04 | disposition home or self-care (01) | LOC: HO.LNP 08:03 | PROVIDERS: PCP Family Medicine; Visit Provider Advanced Practice Midwife | DX: Z01.419 Encounter for gynecological examination (general) (routine) without abnormal findings (principal); R10.20 Pelvic and perineal pain unspecified side; Z79.899 Other long term (current) drug therapy | CPT/HCPCS: 81003; 87626; 88175 ==